=== PATIENT | female | born 1955 | race Caucasian/White ===

== ENCOUNTER 2020-07-27 01:09 | Emergency (ER) | payer MEDICAID, OTHER ==
[~2020-07-27] VITALS: Ht 165.1 cm; Wt 63.5 kg
[2020-07-27 02:55] LABS: Basophils # (auto) 0.1 10 ^3/uL (0-0.2); Lymphocytes # (auto) 2.1 10 ^3/uL (0.4-5.4)
[2020-07-27 02:56] LABS: Basophils % (auto) 0.5 % (0.0-2.0); Eosinophils # (auto) 1.8 10 ^3/uL (0-0.8); Eosinophils % (auto) 13.1 % (0.0-7.0); Hemoglobin 15.6 g/dL (12.2-16.2); Lymphocytes % (auto) 15.3 % (10.0-50.0); Mean Corpuscular Hemoglobin 31.3 pg (28.0-32.0); Mean Corpuscular Hgb Conc. 33.8 g/dL (32.0-36.0); Mean Corpuscular Volume 92.6 fL (80.0-100.0); Monocytes # (auto) 0.8 10 ^3/uL (0-1.3); Monocytes % (auto) 5.5 % (0.0-12.0); Neutrophils # (auto) 9.1 10 ^3/uL (1.6-8.6); Neutrophils % (auto) 65.6 % (37.0-80.0); Platelet Count (auto) 454 10^3/uL (140-450); Red Blood Cells 4.97 10^6/uL (4.0-5.20); Red Cell Distribution Width 13.1 % (11.8-14.3); White Blood Cell 13.8 10^3/uL (4.4-10.8)
[2020-07-27 03:12] LABS: Calcium 8.7 mg/dL (8.5-10.1); Chloride 108 mmol/L (98-107); Potassium 3.9 mmol/L (3.5-5.1); Sodium 138 mmol/L (136-145)
[2020-07-27 03:16] LABS: Alanine Aminotransferase 18 U/L (13-56); Albumin 3.5 g/dL (3.4-5.0); Anion Gap 8 (5-15); Aspartate Aminotransferase 11 U/L (15-37); BUN/Creatinine Ratio 14.3; Blood Urea Nitrogen 10 mg/dL (7-18); Carbon Dioxide 22 mmol/L (21-32); GFR African American 109 mL/min; GFR Non-African American 90 mL/min; Glucose 119 mg/dL (74-106)
[2020-07-27 03:17] LABS: INR 0.97 (0.9-1.15)
[2020-07-27 03:20] LABS: Alkaline Phosphatase 138 U/L (45-117); Bilirubin, Total 0.2 mg/dL (0.2-1.0); Total Protein 7.5 g/dL (6.4-8.2)
[2020-07-27] MEDS ORDERED: IPRATROPIUM BROM 0.5 MG/2.5ML INH SOL NEB ONE (03:30)
[2020-07-27] MEDS ORDERED: methylPREDNISolone SOD SUCC 125 MG/2 ML VL IV ONE (03:30)
[2020-07-27] MEDS ORDERED: ALBUTEROL SULF 2.5 MG/0.5ML(0.5%) NEB SOLN NEB ONE (03:30)
[2020-07-27 06:00] VITALS: BP 122/86
== END 2020-07-27 07:05 | disposition home or self-care (01) ==
LOC: EDBD 01:09 → ER 01:17
DX: J44.1 Chronic obstructive pulmonary disease with (acute) exacerbation (principal); F17.210 Nicotine dependence, cigarettes, uncomplicated
CPT/HCPCS: 36415; 80053; 83605; 84484; 85025; 85610; 85730; 93005; 94640; 96374; 99284; J2930; J7644

== ENCOUNTER 2024-01-26 03:05 | Inpatient (IN) | payer BC, MEDICAID ==
[~2024-01-26] VITALS: Ht 160 cm; Wt 52.0 kg
[2024-01-26] MEDS: IPRATROPIUM BROM 0.5 MG/2.5ML INH SOL NEB ONE (03:37)
[2024-01-26] MEDS: ALBUTEROL SULF 2.5 MG/0.5ML(0.5%) NEB SOLN NEB ONE (03:37)
--- NOTE | 2024-01-26 03:48 | ED.PDOC ---
SOB-HPI HPI Comments A 68 year old female brought in by EMS presents to the ED with a chief complaint of shortness of breath onset 4 days. Per EMS, patient was seen in urgent care last night around 20:30 was given steroid and inhaler. Pt got home and noticed her shortness of breath and cough worsen and called EMS. Upon EMS arrival, patient's O2 sat was 80%, patient was given breathing treatment and O2 sat was 99%. She has a past medical history of asthma, COPD. No other symptoms or modifying factors present at this time. Chief Complaint: Shortness of Breath Time Seen by MD: 03:20 Reviewed notes: Medications, Allergies Information Source: Patient, Emergency Med Personnel Mode of Arrival: EMS Severity: Moderate Timing: Days Duration: Since onset PE Risk Factors: None History of: Asthma, COPD Prehospital treatment: Treatment Associated Signs and Symptoms: Cough Radiation: No Radiation Past Medical History PAST MEDICAL HISTORY: Asthma, COPD Surgical History: Denies all surgeries TOP EXECUTIVE History: Denies all TOP EXECUTIVE Hx Family History Family History: Unknown Social History Smoker: Cigarettes Alcohol: Denies ETOH Use Drugs: Denies Drug Use Lives In: Home Constitutional: denies: chills, diaphoresis, fatigue, fever, malaise, sweats, w eakness, others EENTM: denies: blurred vision, double vision, ear bleeding, ear discharge, ear drainage, ear pain, ear ringing, eye pain, eye redness, hearing loss, mouth pain, mouth swelling, nasal discharge, nose bleeding, nose congestion, nose pain, photophobia, tearing, throat pain, throat swelling, voice changes, others Respiratory: reports: cough, shortness of breath; denies: hemoptysis, orthopnea, SOB at rest, SOB with excertion, stridor, wheezing, others Cardiovascular: denies: chest pain, dizzy spells, diaphoresis, Dyspnea on exertion, edema, irregular heart beat, left arm pain, lightheadedness, palpitations, PND, syncope, others Gastrointestinal: denies: abdomen distended, abdominal pain, blood streaked bowels, constipated, diarrhea, dysphagia, difficulty swallowing, hematemesis, melena, nausea, poor appetite, poor fluid intake, rectal bleeding, rectal pain, vomiting, others Genitourinary: denies: abnormal vagina bleeding, burning, dyspareunia, dysuria, flank pain, frequency, hematuria, incontinence, pain, , vagina discharge, urgency, others Neurological: denies: dizziness, fainting, headache, left sided numbness, left sided weakness, numbness, paresthesia, pre-existing deficit, right sided numbne ss, right sided weakness, seizure, speech problems, tingling, tremors, weakness, others Musculoskeletal: denies: back pain, gout, joint pain, joint swelling, muscle pain, muscle stiffness, neck pain, others Integumetry: denies: bruises, change in color, change in hair/nails, dryness, laceration, lesions, lumps, rash, wounds, others Allergic/Immunocompromised: denies: Difficulty Healing, Frequent Infections, Hives, Itching, others Hematologic/Lymphatic: denies: anemia, blood clots, easy bleeding, easy bruising, swollen glands, others Endocrine: denies: excessive hunger, excessive sweating, excessive thirst, excessive urination, flushing, intolerance to cold, intolerance to heat, unexplained weight gain, unexplained weight loss, others Psychiatric: denies: anxiety, bipolar disorder, depression, hopeless, panic disorder, schizophrenia, sleepless, suicidal, others All Other Systems: Reviewed and Negative Physical Exam General Appearance: No Apparent Distress, Normal HEENT: Normal ENT Inspection, Pharynx Normal, TMs Normal Neck: Full Range of Motion, Non-Tender, Normal, Normal Inspection Respiratory: Chest Non-Tender, Lungs Clear, No Accessory Muscle Use, No Respiratory Distress, Normal Breath Sounds Cardiovascular: No Edema, No JVD, No Murmur, No Gallop, Normal Peripheral Pulses, Regular Rate/Rhythm Breast Exam: Deferred Gastrointestinal: No Organomegaly, Non Tender, No Pulsatile Mass, Normal Bowel Sounds, Soft Genitalia: Deferred Pelvic: Deferred Rectal: Deferred Extremities: No calf tenderness, Normal capillary refill, Normal inspection, Normal range of motion, Non-tender, No pedal edema Musculoskeletal : Apperance: Normal Neurologic: Alert, professional bondsman II-XII nml as Tested, No Motor Deficits, Normal Affect, Normal Mood, No Sensory Deficits Cerebellar Function: Normal Reflexes: Normal Skin: Dry, Normal Color, Warm Lymphatic: No Adenopathy Was a procedure done? Was a procedure done?: No Differential Dx Differential Diagnosis: Asthma, Bronchitis, CHF, COPD, Dysrhythmia, Pneumonia, Pulmonary Embolism, Other X-Ray, Labs, Meds, VS Vital Signs Date Time Temp Pulse Resp B/P (MAP) Pulse Ox O2 Delivery O2 Flow Rate FiO2 01/26/24 04:15 98.8 115 26 134/87 (103) 92 98.8 01/26/24 04:15 115 26 92 Room Air* 0 21 01/26/24 03:39 18 98 Room Air* 0 01/26/24 03:11 99.7 121 24 126/4 (44) 99 Lab Test 01/26/24 05:03 01/26/24 03:51 01/26/24 03:40 Range/Units Troponin I High Sensitivity Pending 548 *H </=34 ng/L Blood Gas Specimen Type Venous Blood Gas Sample Site Vbg - n/a Blood Gas Patient Temperature 37.0 Arterial Blood Date Drawn [id number] Martín Test N/a Venous Blood pH 7.410 7.320-7.430 Venous Blood pCO2 at Patient Temp 30.8 L 38.0-54.0 mmHg Venous Blood pO2 at Patient Temp 46.8 23.0-48.0 mmHg Venous Blood HCO3 19.1 L 22.0-29.0 mmol/L Venous Bld O2 Saturation (Measured) 80.5 60.0-85.0 % Venous Blood Base Excess -4.5 L -2.0-3.0 mmol/L Venous Blood Total Hemoglobin 12.2 12.0-16.0 g/dL Venous Blood Oxyhemoglobin 79.0 0.0-79.0 % Venous Blood Carboxyhemoglobin 1.3 0.5-1.5 % Venous Blood Methemoglobin 0.6 0.0-1.5 % Blood Gas Modality Vbg - n/a FiO2 % 36.0 Specimen Drawn By Er staff White Blood Count 12.9 H 4.4-10.8 10^3/uL Red Blood Count 3.58 L 4.0-5.20 10^6/uL Hemoglobin 11.2 L 12.2-16.2 g/dL Hematocrit 34.1 L 36.0-46.0 % Mean Corpuscular Volume 95.4 80.0-100.0 fL Mean Corpuscular Hemoglobin 31.4 28.0-32.0 pg Mean Corpuscular Hemoglobin Concent 32.9 32.0-36.0 g/dL Red Cell Distribution Width 14.5 H 11.8-14.3 % Platelet Count 267 140-450 10^3/uL Mean Platelet Volume 8.4 6.9-10.8 fL Neutrophils (%) (Auto) 77.3 37.0-80.0 % Lymphocytes (%) (Auto) 15.4 10.0-50.0 % Monocytes (%) (Auto) 4.7 0.0-12.0 % Eosinophils (%) (Auto) 1.7 0.0-7.0 % Basophils (%) (Auto) 0.9 0.0-2.0 % Neutrophils # (Auto) 9.9 H 1.6-8.6 10 ^3/uL Lymphocytes # (Auto) 2.0 0.4-5.4 10 ^3/uL Monocytes # (Auto) 0.6 0-1.3 10 ^3/uL Eosinophils # (Auto) 0.2 0-0.8 10 ^3/uL Basophils # (Auto) 0.1 0-0.2 10 ^3/uL Nucleated Red Blood Cells 0.0 % Sodium Level 141 136-145 mmol/L Potassium Level 3.0 L 3.5-5.1 mmol/L Chloride Level 110 H 98-107 mmol/L Carbon Dioxide Level 20 20-31 mmol/L Anion Gap 11 5-15 Blood Urea Nitrogen 15 9-23 mg/dL Creatinine 0.85 0.550-1.02 mg/dL Glomerular Filtration Rate Calc 76 >90 mL/min BUN/Creatinine Ratio 17.6 10.0-20.0 Serum Glucose 115 H 74-106 mg/dL Calcium Level 9.1 8.7-10.4 mg/dL Total Bilirubin 0.4 0.2-1.0 mg/dL Aspartate Amino Transferase (AST) 30 13-40 U/L Alanine Aminotransferase (ALT) 30 7-40 U/L Alkaline Phosphatase 127 H 46-116 U/L B-Type Natriuretic Peptide 1275.78 0-100 pg/mL Total Protein 6.0 5.7-8.2 g/dL Albumin 3.7 3.2-4.8 g/dL Current Medications Medications (Trade) Dose Ordered Sig/Desirae Route Start Time Stop Time Status Last Admin Albuterol (Ventolin Medneb) 5 mg ONCE ONCE NEB 01/26/24 03:30 01/26/24 03:31 DC 01/26/24 03:37 Ipratropium [place] (Atrovent Medneb) 0.5 mg ONCE ONCE NEB 01/26/24 03:30 01/26/24 03:31 DC 01/26/24 03:37 Prednisone 40 mg ONCE ONCE PO 01/26/24 03:30 01/26/24 03:31 DC 01/26/24 04:23 Time of 1ST Reevaluation: 03:50 Reevaluation 1ST: Unchanged Time of 2ND Reevaluation: 05:31 Reevaluation 2ND: Unchanged Patient Education/Counseling: Diagnosis, Treatment, Prognosis Family Education/Counseling: No Family Present Departure 1 Departure Time of Disposition: 05:31 (I personally reviewed and interpreted the lab and imaging studies. I reviewed the results with the patient and using shared decision making we decided on inpatient management /admission. ) Impression: Primary Impression: COPD with acute exacerbation Additional Impression: Intermediate coronary syndrome Disposition: ADMITTED INPATIENT Condition: Guarded Critical Care Note Critical Care Time?: Yes (35 min-critical care time only) Critical care comment: Total critical care time: Approximately 36 minutes Due to a high probability of clinically significant, life threatening deterioration, the patient required my highest level of preparedness to intervene emergently and I personally spent this critical care time directly and personally managing the patient. This critical care time included obtaining a history; examining the patient; pulse oximetry; ordering and review of studies; arranging urgent treatment with development of a management plan; evaluation of patient's response to treatment; frequent reassessment; and, discussions with other providers. This critical care time was performed to assess and manage the high probability of imminent, life-threatening deterioration that could result in multi-organ failure. It was exclusive of separately billable procedures and treating other patients. Stability Stability form required: No Heart Score Heart Score: Heart Score Response (Comments) Value History Moderate Suspicious 1 EKG Repolarization Disturb 1 Age >65 2 Risk Factors 1 or 2 risk factors 1 Troponin >3 x's Normal limit 2 Total 7 I personally scribed for ESTEFANY DUFFY MD ([email or web address]) on 01/26/24 at 03:48. Electronically submitted by Hilaria Garner ([email or web address]). ESTEFANY DUFFY MD Jan 26, 2024 03:48
[2024-01-26 04:15] VITALS: PULSE 115; RESP 26; O2SAT 92
[2024-01-26] MEDS: predniSONE 20 MG TAB PO ONE (04:23)
[2024-01-26 04:31] LABS: Basophils # (auto) 0.1 10 ^3/uL (0-0.2); Basophils % (auto) 0.9 % (0.0-2.0); Eosinophils # (auto) 0.2 10 ^3/uL (0-0.8); Eosinophils % (auto) 1.7 % (0.0-7.0); Hematocrit 34.1 % (36.0-46.0); Hemoglobin 11.2 g/dL (12.2-16.2); Lymphocytes % (auto) 15.4 % (10.0-50.0); Mean Corpuscular Hemoglobin 31.4 pg (28.0-32.0); Mean Corpuscular Hgb Conc. 32.9 g/dL (32.0-36.0); Mean Corpuscular Volume 95.4 fL (80.0-100.0); Monocytes # (auto) 0.6 10 ^3/uL (0-1.3); Monocytes % (auto) 4.7 % (0.0-12.0); Neutrophils # (auto) 9.9 10 ^3/uL (1.6-8.6); Neutrophils % (auto) 77.3 % (37.0-80.0); Platelet Count (auto) 267 10^3/uL (140-450); Red Blood Cells 3.58 10^6/uL (4.0-5.20); Red Cell Distribution Width 14.5 % (11.8-14.3); White Blood Cell 12.9 10^3/uL (4.4-10.8)
[2024-01-26 04:47] LABS: Alanine Aminotransferase 30 U/L (7-40); Albumin 3.7 g/dL (3.2-4.8); Anion Gap 11 (5-15); Aspartate Aminotransferase 30 U/L (13-40); BUN/Creatinine Ratio 17.6 (10.0-20.0); Blood Urea Nitrogen 15 mg/dL (9-23); Calcium 9.1 mg/dL (8.7-10.4); Sodium 141 mmol/L (136-145)
[2024-01-26 04:48] LABS: Bilirubin, Total 0.4 mg/dL (0.2-1.0)
[2024-01-26 04:51] LABS: Alkaline Phosphatase 127 U/L (46-116); Carbon Dioxide 20 mmol/L (20-31); Chloride 110 mmol/L (98-107); Glucose 115 mg/dL (74-106)
--- NOTE | 2024-01-26 05:05 | DVH ---
CHEST RADIOGRAPH Indication: SOB Technique: Single frontal view of the chest was obtained COMPARISON: None FINDINGS: Lines and Tubes: None Lungs: Diffuse increased interstitial prominence. Right lower lobe airspace disease. Pleura: No effusion. No pneumothorax. Cardiomediastinal contours: Unremarkable Bones: Unremarkable IMPRESSION: Right lower lobe airspace disease. Diffuse increased interstitial prominence may represent congestion or viral pneumonitis.
[2024-01-26] MEDS: ASPirin 81 mg TAB PO ONE ×2 (05:46→07:45)
[2024-01-26] MEDS: cefTRIAXone 1GM/50ML D5W 50 ML IV ONE (05:46)
[2024-01-26] MEDS: AZITHROMYCIN 500MG/ 250ML 250 ML IV ONE (06:18)
--- NOTE | 2024-01-26 06:36 | ECG ---
[facility] Test Date: 2024-01-26 Test Time: 03:32:15 Pat Name: AMARJIT ALLEN Department: ER Room: 0245T Gender: F Blueprint Reproducer: MARCELA : 1955 Requested By: ESTEFANY DUFFY Order Number: [id number] Reading MD: Riccardo Isaacs Measurements Intervals [place] Rate: 114 P: 36 CO: 94 QRS: 80 QRSD: 161 T: -75 QT: 386 QTc: 532 Interpretive Statements Sinus tachycardia Atrial premature complex Probable left ventricular hypertrophy Prolonged QT interval Electronically Signed On 01-27-2024 10:29:49 PST by Riccardo Isaacs Please click the below link to view image of tracing.
[2024-01-26] MEDS ORDERED: NITROGLYCERIN 0.4 MG SL TAB SL PRN (07:30)
[2024-01-26] MEDS ORDERED: ONDANSETRON HCL 4 MG/2 ML VIAL IV PRN (07:30)
[2024-01-26] MEDS ORDERED: ACETAMINOPHEN 325 MG TAB PO PRN (07:30)
[2024-01-26] MEDS ORDERED: MORPHINE SULFATE INJ 2 MG/ml SYRG IV PRN (07:30)
--- NOTE | 2024-01-26 07:44 | DVHHP2 ---
History of Present Illness Reason for Visit: Shortness of breath History of Present Illness Ayse Salinas is a 68-year-old female with past medical history of COPD, who comes in with complaints of shortness of breath. Patient states her shortness of breath began on Tuesday. It was worsening so she went to urgent care on Tuesday a nd received breathing treatments that helped her. She tried to work on Tuesday and was not able to. She went back too urgent care on Tuesday, but when her symptoms continued to worsen she called EMS Tuesday night. Patient states the shortness of breath was becoming so severe that she was short of breath at rest. When EMS arrived patient was hypoxic with RA sat of 80%, after receiving a breathing treatment her oxygen saturation improved. Patient continues to complain of shortness of breath at rest and dry cough. Pulmonary: COPD Past Surgical History: None Family History: None Smoke: <1 pack per day ALCOHOL: none Drugs: None Lives: with Family Domestic Violence: Neg Review of Systems Constitutional: No: Fever, Chills, Sweats, Weakness, Malaise, Other Eyes: No: Pain, Vision change, Conjunctivae inflammation, Eyelid inflammation, Other, Redness ENT: No: Ear pain, Ear discharge, Nose pain, Nose discharge, Nose congestion, Mouth pain, Mouth swelling, Throat pain, Throat swelling, Other Respiratory: Cough, Dry, Shortness of breath, SOB with excertion, Wheezing; No: Hemoptysis, Pleuritic Pain, Sputum, Wheezing, Other Cardiovascular: No: Chest Pain, Palpitations, Orthopnea, Paroxysmal Noc. Dyspnea, Edema, Lt Headedness, Other Gastrointestinal: No: Nausea, Vomiting, Abdominal Pain, Diarrhea, Constipation, Melena, Hematochezia, Other Genitourinary: No Dysuria, No Frequency, No Incontinence, No Hematuria, No Retention, No Other Musculoskeletal: No: other, neck pain, shoulder pain, arm pain, back pain, hand pain, leg pain, foot pain Skin: No: Rash, Lesions, Jaundice, Bruising, Other Neurological: No: Weakness, Numbness, Incoordination, Change in speech, Confusion, Seizures, Other Allergies: Coded Allergies: Penicillins (Verified Allergy, Unknown, 07/27/20) Medications Current Medications Medications Dose Ordered Sig/Desirae Route Start Time Stop Time Status Last Admin Dose Admin Sodium Chloride 10 ml Q8HR IV 01/26/24 14:00 UNV Acetaminophen/ Hydrocodone Bitart 1 tab Q4HP PRN PO 01/26/24 07:30 UNV Ondansetron HCl 4 mg Q4HP PRN IV 01/26/24 07:30 UNV Docusate Sodium 100 mg BIDPRN PRN PO 01/26/24 07:30 UNV Acetaminophen 650 mg Q6HP PRN PO 01/26/24 07:30 UNV Exam Vital Signs Vital Signs Date Time Temp Pulse Resp B/P (MAP) Pulse Ox O2 Delivery O2 Flow Rate FiO2 01/26/24 06:00 112 25 126/84 (98) 95 01/26/24 04:15 98.8 98.8 01/26/24 04:15 Room Air* 0 21 General Appearance: Alert, Oriented X3, Cooperative, moderate distress HEENT: Atraumatic, PERRLA Respiratory: Other (dimished breath sounds, wheezing) Cardiovascular: Normal S1, Normal S2, Other (Tachycardia) Abdominal: Normal bowel sounds, Soft, No tenderness Extremities: No clubbing, No cyanosis, No edema, Normal pulses Skin: No rashes, No breakdown, No significant lesion Neuro: Normal gait, Normal speech, Strength at 5/5 X4 ext Psych/Mental Status: Mental status NL, Mood NL Labs/Xrays Labs Test 01/26/24 05:54 01/26/24 05:03 01/26/24 03:51 01/26/24 03:40 Range/Units Lactic Acid Level 1.6 0.4-2.0 mmol/L Troponin I High Sensitivity 611 *H </=34 ng/L Blood Gas Specimen Type Venous Blood Gas Sample Site Vbg - n/a Blood Gas Patient Temperature 37.0 Arterial Blood Date Drawn [id number] Martín Test N/a Venous Blood pH 7.410 7.320-7.430 Venous Blood pCO2 at Patient Temp 30.8 L 38.0-54.0 mmHg Venous Blood pO2 at Patient Temp 46.8 23.0-48.0 mmHg Venous Blood HCO3 19.1 L 22.0-29.0 mmol/L Venous Bld O2 Saturation (Measured) 80.5 60.0-85.0 % Venous Blood Base Excess -4.5 L -2.0-3.0 mmol/L Venous Blood Total Hemoglobin 12.2 12.0-16.0 g/dL Venous Blood Oxyhemoglobin 79.0 0.0-79.0 % Venous Blood Carboxyhemoglobin 1.3 0.5-1.5 % Venous Blood Methemoglobin 0.6 0.0-1.5 % Blood Gas Modality Vbg - n/a FiO2 % 36.0 Specimen Drawn By Er staff White Blood Count 12.9 H 4.4-10.8 10^3/uL Red Blood Count 3.58 L 4.0-5.20 10^6/uL Hemoglobin 11.2 L 12.2-16.2 g/dL Hematocrit 34.1 L 36.0-46.0 % Mean Corpuscular Volume 95.4 80.0-100.0 fL Mean Corpuscular Hemoglobin 31.4 28.0-32.0 pg Mean Corpuscular Hemoglobin Concent 32.9 32.0-36.0 g/dL Red Cell Distribution Width 14.5 H 11.8-14.3 % Platelet Count 267 140-450 10^3/uL Mean Platelet Volume 8.4 6.9-10.8 fL Neutrophils (%) (Auto) 77.3 37.0-80.0 % Lymphocytes (%) (Auto) 15.4 10.0-50.0 % Monocytes (%) (Auto) 4.7 0.0-12.0 % Eosinophils (%) (Auto) 1.7 0.0-7.0 % Basophils (%) (Auto) 0.9 0.0-2.0 % Neutrophils # (Auto) 9.9 H 1.6-8.6 10 ^3/uL Lymphocytes # (Auto) 2.0 0.4-5.4 10 ^3/uL Monocytes # (Auto) 0.6 0-1.3 10 ^3/uL Eosinophils # (Auto) 0.2 0-0.8 10 ^3/uL Basophils # (Auto) 0.1 0-0.2 10 ^3/uL Nucleated Red Blood Cells 0.0 % Sodium Level 141 136-145 mmol/L Potassium Level 3.0 L 3.5-5.1 mmol/L Chloride Level 110 H 98-107 mmol/L Carbon Dioxide Level 20 20-31 mmol/L Anion Gap 11 5-15 Blood Urea Nitrogen 15 9-23 mg/dL Creatinine 0.85 0.550-1.02 mg/dL Glomerular Filtration Rate Calc 76 >90 mL/min BUN/Creatinine Ratio 17.6 10.0-20.0 Serum Glucose 115 H 74-106 mg/dL Calcium Level 9.1 8.7-10.4 mg/dL Total Bilirubin 0.4 0.2-1.0 mg/dL Aspartate Amino Transferase (AST) 30 13-40 U/L Alanine Aminotransferase (ALT) 30 7-40 U/L Alkaline Phosphatase 127 H 46-116 U/L B-Type Natriuretic Peptide 1275.78 0-100 pg/mL Total Protein 6.0 5.7-8.2 g/dL Albumin 3.7 3.2-4.8 g/dL CHEST RADIOGRAPH FINDINGS: Lines and Tubes: None Lungs: Diffuse increased interstitial prominence. Right lower lobe airspace disease. Pleura: No effusion. No pneumothorax. Cardiomediastinal contours: Unremarkable Bones: Unremarkable IMPRESSION: Right lower lobe airspace disease. Diffuse increased interstitial prominence may represent congestion or viral pneumonitis. Assessment/Plan Assessment/Plan Assessment: COPD with acute exacerbation, SIRS, Hypoxia, Possible pneumonia, Possible Pneumonitis, Elevated troponin, R/O ACS, Hypokalemia, Tobacco dependence, Plan: Admit to Tele, Cardiology consult, IV antibiotics, IV steroids, Breathing treatments as needed, Supplemental oxygen as needed, Manage/Monitor electrolytes closely, Plan discussed with: Patient My Orders Orders - KENNY RODRIGUEZ BASTING MARKER Procedure Category Date Status Time Admit ADMIT 01/26/24 Transmitted 07:29 Code Status CODE 01/26/24 Transmitted 07:29 2 Gm Sodium Diet DIET 01/26/24 Transmitted Breakfast Sodium Chloride Lock PHA 01/26/24 Transmitted (Saline Lock Ns) 14:00 Hydrocodone-Acet PHA 01/26/24 Transmitted 5/325mg Tab ([place] 07:30 Ondansetron Hcl PHA 01/26/24 Transmitted (Zofran) 07:30 Docusate Sodium PHA 01/26/24 Transmitted Capsule (Colace 07:30 Complete Blood Count LAB 01/27/24 Verified 04:00 Comprehensive LAB 01/27/24 Verified Metabolic Panel 04:00 Condition: Serious RIANA 01/26/24 Transmitted 07:29 Acetaminophen Tablet PHA 01/26/24 Transmitted (Tylenol Tablet) 07:30 Nitroglycerin PHA 01/26/24 Transmitted Sublingual (Ntrostat 07:30 Morphine Sulfate PHA 01/26/24 Transmitted Injection 07:30 Stat Ekg For Chest [facility] 01/26/24 Transmitted Pain 07:29 Notify Md Of Changes [facility] 01/26/24 Transmitted From Base 07:29 Glass Mold Repairer For [facility] 01/26/24 Transmitted 24 Hours 07:29 Emergency Dysrhythmia [facility] 01/26/24 Transmitted Protocol 07:29 Rhythm Strips Once [facility] 01/26/24 Transmitted Every Shift 07:29 Oxygen By Nasal RT 01/26/24 Transmitted Cannula 07:29 * Cardiology Consult CONS 01/26/24 Transmitted 07:29 Azithromycin 500mg/ PHA 01/27/24 Transmitted 250ml (Zithromax 50 10:00 Ceftriaxone Ivpb [facility] 01/27/24 Transmitted Rocephin 09:00 Methylprednisolone [facility] 01/26/24 Transmitted Sod Succ (Solu Medrol 10:00 Albuterol Medneb [facility] 01/26/24 Transmitted (Ventolin Medneb) 07:30 Ipratropium Medneb [facility] 01/26/24 Transmitted (Atrovent Medneb) 07:30 Date of Service: Jan 26, 2024 Billing Provider: KENNY RODRIGUEZ Common Visit Codes: [id number] INP/OBS CARE (MOD) KENNY RODRIGUEZ Jan 26, 2024 07:44
[2024-01-26] MEDS: POTASSIUM EFFERVESENT TAB 25 MEQ PO ONE (08:18)
[2024-01-26 08:30] VITALS: PULSE 105; RESP 24; O2SAT 97
[2024-01-26 08:50] LABS: Magnesium 2.2 mg/dL (1.6-2.6)
[2024-01-26 08:52] VITALS: BP 115/74; PULSE 106; RESP 22; TEMP 98.8; O2SAT 98
[2024-01-26 09:25] LABS: INR 1.13 (0.9-1.15); Prothrombin Time 11.9 sec (9.3-11.8)
[2024-01-26] MEDS: methylPREDNISolone SOD SUCC 40 MG/ML VL IV SCH (10:39)
[2024-01-26 11:19] LABS: COVID19 ANTIGEN SOFIA FIA NEGATIVE (NEGATIVE); Rapid Influenza A Negative (Negative); Rapid Influenza B Negative (Negative)
--- NOTE | 2024-01-26 11:31 | DVHCONRES ---
Date Seen: Jan 26, 2024 Resident Creating Document: DEMETRIO PULIDO RESIDENT Reason for Consultation Elevated troponins History of Present Illness Ayse Salinas is a 68-year-old female with PMH of COPD, presented to the ED with the chief complaints of shortness of breath. Patient states her shortness of breath began on Tuesday, worsening so she went to urgent care on Tuesday and received breathing treatments that helped her. She tried to work on Tuesday and was not able to. She went back to urgent care again on Tuesday, but when her symptoms continued to worsen she called EMS Tuesday night. See reports dyspnea on exertion, and orthopnea. She also mentions that she has noticed in her bilateral lower extremities. Patient states the shortness of breath was becoming so severe that she was short of breath at rest. On my assessment patient reported no history of heart diseases, palpitations, chest pain, fever, dizziness, diaphoresis and other acute associated symptoms. Past Medical History COPD Past Surgical History Denies Family History Reviewed, noncontributory Social History Lives with son. Smokes less than 1 pack per day since 15 years old, denies alcohol and other drug abuse. Allergies: Coded Allergies: Penicillins (Verified Allergy, Unknown, 07/27/20) Current Medications Current Medications Medications (Trade) Dose Ordered Sig/Desirae Route PRN Reason Start Time Stop Time Status Last Admin Sodium Chloride (Saline Lock Ns) 10 ml Q8HR IV 01/26/24 14:00 Acetaminophen/ Hydrocodone Bitart ([place] 5/325MG Tab) 1 tab Q4HP PRN PO MODERATE PAIN (4-6 PAIN SCALE) 01/26/24 07:30 Ondansetron HCl (Zofran) 4 mg Q4HP PRN IV NAUSEA / VOMITING 01/26/24 07:30 Docusate Sodium (Colace Capsule) 100 mg BIDPRN PRN PO FOR CONSTIPATION 01/26/24 07:30 Acetaminophen (Tylenol Tablet) 650 mg Q6HP PRN PO PAIN SCALE 1-3 OR TEMP>100.4 01/26/24 07:30 Nitroglycerin (Ntrostat Sublingual) 0.4 mg Q5MINP PRN SL FOR CHEST PAIN 01/26/24 07:30 Morphine Sulfate 2 mg Q30M PRN IV FOR CHEST PAIN 01/26/24 07:30 Azithromycin 250 ml @ 125 mls/hr DAILY IV 01/27/24 10:00 Ceftriaxone Sodium 50 ml @ 100 mls/hr DAILY@09 IV 01/27/24 09:00 Methylprednisolone Sodium Succinate (Solu Medrol) 40 mg BID IV 01/26/24 10:00 01/26/24 10:39 Albuterol (Ventolin Medneb) 2.5 mg Q4HPRN PRN NEB SHORTNESS OF BREATH 01/26/24 07:30 Ipratropium [place] (Atrovent Medneb) 0.5 mg Q4HPRN PRN NEB SHORTNESS OF BREATH 01/26/24 07:30 Aspirin 81 mg DAILY PO 01/27/24 10:00 Review of Systems Seen and examined at the bedside. Patient is currently on oxygen, still complaining of shortness of Breath. Vital Signs Vital Signs Date Time Temp Pulse Resp B/P (MAP) Pulse Ox O2 Delivery O2 Flow Rate FiO2 01/26/24 10:58 98.1 101 22 100/77 (85) 97 98.1 01/26/24 08:52 2.0 01/26/24 08:30 Nasal Cannula* 28 Physical Exam General Appearance: Alert, Oriented X3, Cooperative, moderate distress HEENT: Atraumatic, Mucous membranes dry Respiratory: Clear to auscultation, Normal air movement, mild crackles Cardiovascular: Regular rate, Normal S1, Normal S2, No murmurs Abdominal: Active bowel sounds, Soft, no distention, no tenderness Extremities: Trace to 1+ edema in RLE, Normal pulses, No tenderness Skin: No Significant rash Neuro: Normal speech, sensorimotor deficits none Psych/Mental Status: Mental status NL, Mood NL Nurse was there as david during examination Labs/Diagnostic Data Labs Test 01/26/24 10:00 01/26/24 08:49 01/26/24 05:54 01/26/24 05:03 Range/Units Influenza Type A Antigen Negative Negative Influenza Type B Antigen Negative Negative SARS-CoV-2 Antigen (Rapid) Negative NEGATIVE Prothrombin Time 11.9 H 9.3-11.8 sec Prothrombin Time INR 1.13 0.9-1.15 Activated Partial Thromboplast Time 25.0 24.5-34.5 SEC Lactic Acid Level 1.6 0.4-2.0 mmol/L Troponin I High Sensitivity 611 *H </=34 ng/L Test 01/26/24 03:51 01/26/24 03:40 Range/Units Blood Gas Specimen Type Venous Blood Gas Sample Site Vbg - n/a Blood Gas Patient Temperature 37.0 Arterial Blood Date Drawn [id number] Martín Test N/a Venous Blood pH 7.410 7.320-7.430 Venous Blood pCO2 at Patient Temp 30.8 L 38.0-54.0 mmHg Venous Blood pO2 at Patient Temp 46.8 23.0-48.0 mmHg Venous Blood HCO3 19.1 L 22.0-29.0 mmol/L Venous Bld O2 Saturation (Measured) 80.5 60.0-85.0 % Venous Blood Base Excess -4.5 L -2.0-3.0 mmol/L Venous Blood Total Hemoglobin 12.2 12.0-16.0 g/dL Venous Blood Oxyhemoglobin 79.0 0.0-79.0 % Venous Blood Carboxyhemoglobin 1.3 0.5-1.5 % Venous Blood Methemoglobin 0.6 0.0-1.5 % Blood Gas Modality Vbg - n/a FiO2 % 36.0 Specimen Drawn By Er staff White Blood Count 12.9 H 4.4-10.8 10^3/uL Red Blood Count 3.58 L 4.0-5.20 10^6/uL Hemoglobin 11.2 L 12.2-16.2 g/dL Hematocrit 34.1 L 36.0-46.0 % Mean Corpuscular Volume 95.4 80.0-100.0 fL Mean Corpuscular Hemoglobin 31.4 28.0-32.0 pg Mean Corpuscular Hemoglobin Concent 32.9 32.0-36.0 g/dL Red Cell Distribution Width 14.5 H 11.8-14.3 % Platelet Count 267 140-450 10^3/uL Mean Platelet Volume 8.4 6.9-10.8 fL Neutrophils (%) (Auto) 77.3 37.0-80.0 % Lymphocytes (%) (Auto) 15.4 10.0-50.0 % Monocytes (%) (Auto) 4.7 0.0-12.0 % Eosinophils (%) (Auto) 1.7 0.0-7.0 % Basophils (%) (Auto) 0.9 0.0-2.0 % Neutrophils # (Auto) 9.9 H 1.6-8.6 10 ^3/uL Lymphocytes # (Auto) 2.0 0.4-5.4 10 ^3/uL Monocytes # (Auto) 0.6 0-1.3 10 ^3/uL Eosinophils # (Auto) 0.2 0-0.8 10 ^3/uL Basophils # (Auto) 0.1 0-0.2 10 ^3/uL Nucleated Red Blood Cells 0.0 % Sodium Level 141 136-145 mmol/L Potassium Level 3.0 L 3.5-5.1 mmol/L Chloride Level 110 H 98-107 mmol/L Carbon Dioxide Level 20 20-31 mmol/L Anion Gap 11 5-15 Blood Urea Nitrogen 15 9-23 mg/dL Creatinine 0.85 0.550-1.02 mg/dL Glomerular Filtration Rate Calc 76 >90 mL/min BUN/Creatinine Ratio 17.6 10.0-20.0 Serum Glucose 115 H 74-106 mg/dL Hemoglobin A1c 6.1 H <5.7 % A1C Calcium Level 9.1 8.7-10.4 mg/dL Magnesium Level 2.2 1.6-2.6 mg/dL Total Bilirubin 0.4 0.2-1.0 mg/dL Aspartate Amino Transferase (AST) 30 13-40 U/L Alanine Aminotransferase (ALT) 30 7-40 U/L Alkaline Phosphatase 127 H 46-116 U/L B-Type Natriuretic Peptide 1275.78 0-100 pg/mL Total Protein 6.0 5.7-8.2 g/dL Albumin 3.7 3.2-4.8 g/dL Triglycerides Level 99 < 150 mg/dL Cholesterol Level 142 < 200 mg/dL LDL Cholesterol 90 < 100 mg/dL HDL Cholesterol 38 L 40-59 mg/dL Thyroid Stimulating Hormone (TSH) 3.52 0.55-4.78 uIU/mL Assessment NSTEMI type 2 likely due to COPD exacerbation Rule out structural heart disease Acute hypoxic respiratory failure likely due to COPD exacerbation COPD exacerbation, SIRS vs Sepsis ? Pneumonia, Hypokalemia, Tobacco dependence, Plan/Recommendation We will continue with the following plan/recommendations (Dr. Weller): Echocardiogram to evaluate cardiac function Chest pain protocol Continue with aspirin for now Risk factor modification Discussed with Dr. Wooten Given that the patient High risk for CAD patient may benefit from a inpatient coronary angiogram with left heart catheterization once patient is clinically stabilized. Procedure was discussed with the patient in full detail including risks and benefits. Risks include but are not limited to bleeding, contrast-induced nephropathy, stroke, and even . The patient understands and is agreeable to undergo the procedure. We will schedule the patient once clinically stabilized. Plan discussed with: Patient Visit Coding Cardiology RES Date of Service: Jan 26, 2024 Billing Provider: MARY BETH WOOTEN MD Cardiology Common Codes: [id number] INP/OBS CARE (Mod) DEMETRIO PULIDO RESIDENT Jan 26, 2024 11:31
--- NOTE | 2024-01-26 13:23 | DVHPN2 ---
Reviewed: Care Plan, H&P, Labs, Medications, Previous Orders, Radiology Changes from previous H/P or p: No Changes Eyes: No Pain, No Vision change, No Conjunctivae inflammation, No Eyelid inflammation, No Other, No Redness ENT: No Ear pain, No Ear discharge, No Nose pain, No Nose discharge, No Nose congestion, No Mouth pain, No Mouth swelling, No Throat pain, No Throat swelling, No Other Cardiovascular: No Chest Pain, No Palpitations, No Orthopnea, No Paroxysmal Noc. Dyspnea, No Edema, No Lt Headedness, No Other Respiratory: Cough, Dry, Shortness of breath, SOB with excertion, Wheezing; No Hemoptysis, No Pleuritic Pain, No Sputum, No Other Gastrointestinal: No Nausea, No Vomiting, No Abdominal Pain, No Diarrhea, No Constipation, No Melena, No Hematochezia, No Other Genitourinary: No Dysuria, No Frequency, No Incontinence, No Hematuria, No Retention, No Other Musculoskeletal: No other, No neck pain, No shoulder pain, No arm pain, No back pain, No hand pain, No leg pain, No foot pain Skin: No Rash, No Lesions, No Jaundice, No Bruising, No Other Objective Vitals Vital Signs Date Time Temp Pulse Resp B/P (MAP) Pulse Ox O2 Delivery O2 Flow Rate FiO2 01/26/24 12:48 104 22 110/78 (89) 97 01/26/24 10:58 98.1 98.1 01/26/24 08:52 2.0 01/26/24 08:30 Nasal Cannula* 28 Intake/Output Intake and Output 01/26/24 07:00 Intake Total 50 ml Balance 50 ml Intake IV Total 50 ml Medications Current Medications Medications Dose Ordered Sig/Desirae Route Start Time Stop Time Status Last Admin Dose Admin Sodium Chloride 10 ml Q8HR IV 01/26/24 14:00 Acetaminophen/ Hydrocodone Bitart 1 tab Q4HP PRN PO 01/26/24 07:30 Ondansetron HCl 4 mg Q4HP PRN IV 01/26/24 07:30 Docusate Sodium 100 mg BIDPRN PRN PO 01/26/24 07:30 Acetaminophen 650 mg Q6HP PRN PO 01/26/24 07:30 Nitroglycerin 0.4 mg Q5MINP PRN SL 01/26/24 07:30 Morphine Sulfate 2 mg Q30M PRN IV 01/26/24 07:30 Azithromycin 250 ml @ 125 mls/hr DAILY IV 01/27/24 10:00 Ceftriaxone Sodium 50 ml @ 100 mls/hr DAILY@09 IV 01/27/24 09:00 Methylprednisolone Sodium Succinate 40 mg BID IV 01/26/24 10:00 01/26/24 10:39 40 MG Albuterol 2.5 mg Q4HPRN PRN NEB 01/26/24 07:30 Ipratropium [place] 0.5 mg Q4HPRN PRN NEB 01/26/24 07:30 Aspirin 81 mg DAILY PO 01/27/24 10:00 Laboratory Results Laboratory Tests 01/26/24 03:40 Chemistry Test 01/26/24 03:40 Albumin 3.7 g/dL (3.2-4.8) Calcium Level 9.1 mg/dL (8.7-10.4) Magnesium Level 2.2 mg/dL (1.6-2.6) Total Protein 6.0 g/dL (5.7-8.2) Coagulation Test 01/26/24 08:49 Prothrombin Time 11.9 sec (9.3-11.8) H Prothrombin Time INR 1.13 (0.9-1.15) Activated Partial Thromboplast Time 25.0 SEC (24.5-34.5) Lipid panel Test 01/26/24 03:40 Cholesterol Level 142 mg/dL (< 200) HDL Cholesterol 38 mg/dL (40-59) L Triglycerides Level 99 mg/dL (< 150) Cardiac Markers Test 01/26/24 03:40 B-Type Natriuretic Peptide 1275.78 pg/mL (0-100) LFT Test 01/26/24 03:40 Alanine Aminotransferase (ALT) 30 U/L (7-40) Alkaline Phosphatase 127 U/L (46-116) H Aspartate Amino Transferase (AST) 30 U/L (13-40) Total Bilirubin 0.4 mg/dL (0.2-1.0) HgA1c, TSH Test 01/26/24 03:40 Hemoglobin A1c 6.1 % A1C (<5.7) H Thyroid Stimulating Hormone (TSH) 3.52 uIU/mL (0.55-4.78) Blood Gas Results Test 01/26/24 03:51 FiO2 % 36.0 Labs and/or images reviewed: Labs reviewed by me, Image(s) reviewed by me Assessment/Plan Assessment/Plan NSTEMI type 2 likely due to COPD exacerbation Rule out structural heart disease Acute hypoxic respiratory failure likely due to COPD exacerbation COPD exacerbation, albuterol Atrovent Solu-Medrol SIRS vs Sepsis Possible congestive heart failure BNP 1217 Right Lower lobe community-acquired Pneumonia, Rocephin azithromycin Hypokalemia, Tobacco dependence, counseling Time spent 65 minutes Patient is full code Advanced care planning time 20 minutes Plan discussed with: Patient Date of Service: Jan 26, 2024 Billing Provider: MONTSERRAT OTERO MD Common Visit Codes: [id number] CARE 30-74 MIN MONTSERRAT OTERO MD Jan 26, 2024 13:23
[2024-01-26] MEDS: OPTISON 3ml Vial for INJ IV ONE (13:59)
[2024-01-26] MEDS: SODIUM CHLOR 0.9% PF (SALINE LOCK) 10ML VIAL/SYR IV SCH (13:59)
--- NOTE | 2024-01-26 15:56 | DVHSR ---
APPROVED REPORT EXAM: Two-dimensional and M-mode echocardiogram with Doppler and color Doppler. Blood Pressure: 100/77 mmHg INDICATION SOB RISK FACTORS Height: 5' 3", Weight: 120 DIMENSIONS LVDd4.8 (3.8-5.7cm)LA (2D)3.6 (1.9-4.0cm)Aortic Root3.4 (2.0-3.7cm) LVDs4.6 (2.5-4.0cm)LA (MM) (1.9-4.0cm)Aortic Cusp Exc1.5 (1.5-2.0cm) EF (%) 10.0 (55-70%)Rt. Atrium3.4 (1.9-4.0cm)Asc. Aorta cm IVSd1.0 (0.7-1.1cm)RV (D) (1.8-2.4cm) PWd1.1 (0.7-1.1cm) Mitral Valve MitralMitral Stenosis E wave1.60m/sMV Mean GR.mmHg E/A ratio0.02D MVAcm2 Aortic Valve Aortic ValveAortic Stenosis V10.70m/Aj Mean GR.2mmHg V21.10m/Aj Peak GR.5mmHg LVOT Diameter2.0 (1.8-2.4cm)Doppler AVA2.00cm2 Tricuspid Valve TR Velocity3.30m/s [id number] Conclusion Severely dilated left ventricle. Severely reduced left ventricular systolic function estimated eject ion fraction of 10-15%. There is anterior anteroseptal akinesia, there is inferior and lateral wall hypokinesia Severely reduced right ventricular systolic function. Severe pulmonary hypertension estimated right ventricular systolic pressure at 65 mm of mercury Moderately dilated right and left atria. The aortic valve appears normal in structure and function. Mitral valve appears normal in structure and function. Tricuspid valve appears eran inl structure and function. The pulmonary valve is grossly normal. No pericardial effusion.
[2024-01-26 16:04] LABS: Potassium 4.5 mmol/L (3.5-5.1)
[2024-01-26 16:11] LABS: Magnesium 2.1 mg/dL (1.6-2.6)
--- NOTE | 2024-01-26 18:13 | DVHINCON2 ---
Date of service: Jan 26, 2024 Referring Physician Morgan Callahan MD Reason for Consultation Acute hypoxic respiratory failure, dyspnea, cough, pneumonia. History of Present Illness A 68-year-old woman with past medical history of COPD, who presents to ED today with complaints of shortness of breath. Patient states her shortness of breath began on Tuesday. She went to urgent care on Tuesday and received breathing treatments that helped. She tried to work on Tuesday and was not able to. She went back to urgent care on Tuesday, but when her symptoms continued to worsen she called EMS Tuesday night. Patient states the shortness of breath was becoming so severe that she was short of breath at rest. When EMS arrived patient was hypoxic with RA sat of 80%, after receiving a breathing treatment her oxygen saturation improved. Patient continues to complain of shortness of breath at rest and dry cough. She was admitted for further care and pulmonary consultation is requested for evaluation and management of acute hypoxic respiratory failure, dyspnea, cough and pneumonia. Review of Systems: 14-point review of systems negative unless otherwise noted above. Past Medical History: COPD. Past Surgical History: None. Medications: Reviewed. Allergies: Penicillins Family History: No family history of premature CAD. No family history of lung disorders. Social History: Smoker. <1 pack per day No alcohol or illicit drug use. Allergies: Coded Allergies: Penicillins (Verified Allergy, Unknown, 07/27/20) Current Medications Current Medications Medications (Trade) Dose Ordered Sig/Desirae Route PRN Reason Start Time Stop Time Status Last Admin Sodium Chloride (Saline Lock Ns) 10 ml Q8HR IV 01/26/24 14:00 01/26/24 13:59 Acetaminophen/ Hydrocodone Bitart ([place] 5/325MG Tab) 1 tab Q4HP PRN PO MODERATE PAIN (4-6 PAIN SCALE) 01/26/24 07:30 Ondansetron HCl (Zofran) 4 mg Q4HP PRN IV NAUSEA / VOMITING 01/26/24 07:30 Docusate Sodium (Colace Capsule) 100 mg BIDPRN PRN PO FOR CONSTIPATION 01/26/24 07:30 Acetaminophen (Tylenol Tablet) 650 mg Q6HP PRN PO PAIN SCALE 1-3 OR TEMP>100.4 01/26/24 07:30 Nitroglycerin (Ntrostat Sublingual) 0.4 mg Q5MINP PRN SL FOR CHEST PAIN 01/26/24 07:30 Morphine Sulfate 2 mg Q30M PRN IV FOR CHEST PAIN 01/26/24 07:30 Azithromycin 250 ml @ 125 mls/hr DAILY IV 01/27/24 10:00 Ceftriaxone Sodium 50 ml @ 100 mls/hr DAILY@09 IV 01/27/24 09:00 Methylprednisolone Sodium Succinate (Solu Medrol) 40 mg BID IV 01/26/24 10:00 01/26/24 10:39 Albuterol (Ventolin Medneb) 2.5 mg Q4HPRN PRN NEB SHORTNESS OF BREATH 01/26/24 07:30 Ipratropium [place] (Atrovent Medneb) 0.5 mg Q4HPRN PRN NEB SHORTNESS OF BREATH 01/26/24 07:30 Aspirin 81 mg DAILY PO 01/27/24 10:00 Acetylcysteine (Mucomyst Inhalation 20%) 200 mg Q8HR NEB 01/26/24 22:00 01/29/24 21:59 UNV Vital Signs Vital Signs Date Time Temp Pulse Resp B/P (MAP) Pulse Ox O2 Delivery O2 Flow Rate FiO2 01/26/24 16:57 109 18 122/79 (93) 98 01/26/24 10:58 98.1 98.1 01/26/24 08:52 2.0 01/26/24 08:30 Nasal Cannula* 28 Physical Exam Gen.: Patient lying in bed in no apparent distress. On supplemental oxygen. Head: Normocephalic, atraumatic. Eyes: EOMI/PERRLA. Ears: Normal hearing. Normal anatomy. Neck/trachea: Trachea midline, supple. Nose: Normal external anatomy. Mouth: Moist mucous membranes. Chest: Decreased air entry bilaterally. No wheezing or rhonchi. Cardiovascular: Positive S1, positive S2. Regular rate and rhythm. Abdomen: Positive bowel sounds in all 4 quadrants. Soft, non-tender, non- distended. : Deferred. Rectal: Deferred. Skin: Warm, dry. Intact. Extremities: 2+ radial pulses bilaterally. No lower extremity edema. Neuro: Awake, alert, oriented x3. No gross motor or sensory deficits. Cranial nerves II through XII intact. Gait not assessed. Labs/Diagnostic Data Labs Test 01/26/24 15:17 01/26/24 10:00 01/26/24 08:49 01/26/24 05:54 Range/Units Potassium Level 4.5 3.5-5.1 mmol/L Magnesium Level 2.1 1.6-2.6 mg/dL Influenza Type A Antigen Negative Negative Influenza Type B Antigen Negative Negative SARS-CoV-2 Antigen (Rapid) Negative NEGATIVE Prothrombin Time 11.9 H 9.3-11.8 sec Prothrombin Time INR 1.13 0.9-1.15 Activated Partial Thromboplast Time 25.0 24.5-34.5 SEC Lactic Acid Level 1.6 0.4-2.0 mmol/L Test 01/26/24 05:03 01/26/24 03:51 01/26/24 03:40 Range/Units Troponin I High Sensitivity 611 *H </=34 ng/L Blood Gas Specimen Type Venous Blood Gas Sample Site Vbg - n/a Blood Gas Patient Temperature 37.0 Arterial Blood Date Drawn [id number] Martín Test N/a Venous Blood pH 7.410 7.320-7.430 Venous Blood pCO2 at Patient Temp 30.8 L 38.0-54.0 mmHg Venous Blood pO2 at Patient Temp 46.8 23.0-48.0 mmHg Venous Blood HCO3 19.1 L 22.0-29.0 mmol/L Venous Bld O2 Saturation (Measured) 80.5 60.0-85.0 % Venous Blood Base Excess -4.5 L -2.0-3.0 mmol/L Venous Blood Total Hemoglobin 12.2 12.0-16.0 g/dL Venous Blood Oxyhemoglobin 79.0 0.0-79.0 % Venous Blood Carboxyhemoglobin 1.3 0.5-1.5 % Venous Blood Methemoglobin 0.6 0.0-1.5 % Blood Gas Modality Vbg - n/a FiO2 % 36.0 Specimen Drawn By Er staff White Blood Count 12.9 H 4.4-10.8 10^3/uL Red Blood Count 3.58 L 4.0-5.20 10^6/uL Hemoglobin 11.2 L 12.2-16.2 g/dL Hematocrit 34.1 L 36.0-46.0 % Mean Corpuscular Volume 95.4 80.0-100.0 fL Mean Corpuscular Hemoglobin 31.4 28.0-32.0 pg Mean Corpuscular Hemoglobin Concent 32.9 32.0-36.0 g/dL Red Cell Distribution Width 14.5 H 11.8-14.3 % Platelet Count 267 140-450 10^3/uL Mean Platelet Volume 8.4 6.9-10.8 fL Neutrophils (%) (Auto) 77.3 37.0-80.0 % Lymphocytes (%) (Auto) 15.4 10.0-50.0 % Monocytes (%) (Auto) 4.7 0.0-12.0 % Eosinophils (%) (Auto) 1.7 0.0-7.0 % Basophils (%) (Auto) 0.9 0.0-2.0 % Neutrophils # (Auto) 9.9 H 1.6-8.6 10 ^3/uL Lymphocytes # (Auto) 2.0 0.4-5.4 10 ^3/uL Monocytes # (Auto) 0.6 0-1.3 10 ^3/uL Eosinophils # (Auto) 0.2 0-0.8 10 ^3/uL Basophils # (Auto) 0.1 0-0.2 10 ^3/uL Nucleated Red Blood Cells 0.0 % Sodium Level 141 136-145 mmol/L Chloride Level 110 H 98-107 mmol/L Carbon Dioxide Level 20 20-31 mmol/L Anion Gap 11 5-15 Blood Urea Nitrogen 15 9-23 mg/dL Creatinine 0.85 0.550-1.02 mg/dL Glomerular Filtration Rate Calc 76 >90 mL/min BUN/Creatinine Ratio 17.6 10.0-20.0 Serum Glucose 115 H 74-106 mg/dL Hemoglobin A1c 6.1 H <5.7 % A1C Calcium Level 9.1 8.7-10.4 mg/dL Total Bilirubin 0.4 0.2-1.0 mg/dL Aspartate Amino Transferase (AST) 30 13-40 U/L Alanine Aminotransferase (ALT) 30 7-40 U/L Alkaline Phosphatase 127 H 46-116 U/L B-Type Natriuretic Peptide 1275.78 0-100 pg/mL Total Protein 6.0 5.7-8.2 g/dL Albumin 3.7 3.2-4.8 g/dL Triglycerides Level 99 < 150 mg/dL Cholesterol Level 142 < 200 mg/dL LDL Cholesterol 90 < 100 mg/dL HDL Cholesterol 38 L 40-59 mg/dL Thyroid Stimulating Hormone (TSH) 3.52 0.55-4.78 uIU/mL Assessment Impression: Acute hypoxic respiratory failure Dyspnea on exertion Cough, nonproductive RLL pneumonia, likely gram negative Atelectasis Pulmonary edema Metabolic acidosis Elevated troponin Hypokalemia Nicotine dependence Methamphetamine abuse Plan: Supplemental oxygen 2 LPM NC Titrate to keep O2 sats above 92%. Taper O2 as tolerated. ABG reviewed, compensated. Metabolic acidosis w/ respiratory compensation. CXR demonstrated pulmonary vascular congestion Lasix 20 mg IVP given x1 Monitor ins and outs. Elevated troponin - F/u Cardiology recommendations Bronchodilators Started Mucomyst. Continue steroids Continue antibiotics Incentive spirometry Diurese w/ Lasix as tolerated Monitor renal function. Monitor electrolytes. Supplement as necessary. Monitor ins and outs. Potassium supplementation Smoking cessation discussed for greater than 10 minutes. DVT prophylaxis. Prognosis: Poor given patient's multiple co-morbidities. Rest of plan per hospitalist and other consultants. Thank you Dr. Callahan for allowing me to participate in this patient's care. Further recommendations will depend on the patient's clinical course. Please do not hesitate to contact me if you have any questions or concerns. This medical document was created using an electronic medical record system with [employer] computerized dictation system. Although these documentations are being carefully reviewed, there may still be some phonetic and typographical changes. The errors are purely typographical, due to imperfection on the software program, and do not reflect any compromise in the patient's medical care. Plan discussed with: Patient, Other (URBI Gonzalez/MD Callahan) QI ARAUZ MD Jan 26, 2024 18:13
[2024-01-26] MEDS: FUROSEMIDE 20 MG/2 ML VIAL IV ONE (18:15)
[2024-01-26 18:38] VITALS: PULSE 91; RESP 18; O2SAT 98
[2024-01-26 19:30] VITALS: PULSE 115; RESP 22; O2SAT 97
[2024-01-26] MEDS: ACETYLCYSTEINE 20%(200MG/ML) SOL 4ML NEB SCH (22:00)
[2024-01-26 22:15] VITALS: BP 126/82; PULSE 96; RESP 15; TEMP 97.5; O2SAT 100
[2024-01-26] MEDS: DOCUSATE SOD 100 MG CAP PO PRN (23:13)
[2024-01-27] VITALS (15 sets, daily range): BP systolic 108–149; BP diastolic 74–94; PULSE 87–119; RESP 15–24; TEMP 97.3–98; O2SAT 97–100
[2024-01-27] MEDS ORDERED: NICOTINE 14 MG/24HR TOPICAL PATCH TD ONE (00:45)
[2024-01-27 06:12] LABS: Basophils # (auto) 0 10 ^3/uL (0-0.2); Basophils % (auto) 0.2 % (0.0-2.0); Eosinophils # (auto) 0 10 ^3/uL (0-0.8); Hematocrit 36.8 % (36.0-46.0); Hemoglobin 12.1 g/dL (12.2-16.2); Lymphocytes # (auto) 0.8 10 ^3/uL (0.4-5.4); Lymphocytes % (auto) 5.4 % (10.0-50.0); Mean Corpuscular Hemoglobin 31.3 pg (28.0-32.0); Monocytes # (auto) 0.3 10 ^3/uL (0-1.3); Neutrophils # (auto) 13.2 10 ^3/uL (1.6-8.6); Neutrophils % (auto) 92.4 % (37.0-80.0); Nucleated Red Blood Cells % 0.1 %; Platelet Count (auto) 325 10^3/uL (140-450); Red Blood Cells 3.87 10^6/uL (4.0-5.20); Red Cell Distribution Width 14.7 % (11.8-14.3); White Blood Cell 14.3 10^3/uL (4.4-10.8)
[2024-01-27 06:15] LABS: Albumin 4.1 g/dL (3.2-4.8); Anion Gap 8 (5-15); Aspartate Aminotransferase 36 U/L (13-40); BUN/Creatinine Ratio 15.8 (10.0-20.0); Blood Urea Nitrogen 18 mg/dL (9-23); Calcium 9.9 mg/dL (8.7-10.4); Carbon Dioxide 25 mmol/L (20-31); Chloride 105 mmol/L (98-107); Potassium 4.3 mmol/L (3.5-5.1); Sodium 138 mmol/L (136-145)
[2024-01-27 06:16] LABS: Bilirubin, Total 0.5 mg/dL (0.2-1.0); Total Protein 6.5 g/dL (5.7-8.2)
[2024-01-27 06:29] LABS: Alanine Aminotransferase 43 U/L (7-40); Alkaline Phosphatase 135 U/L (46-116); Glucose 173 mg/dL (74-106)
[2024-01-27 06:47] LABS: Urine Bacteria None Seen /hpf (None Seen)
[2024-01-27 07:06] LABS: Urine Blood Negative /uL (Negative); Urine Clarity Clear (Clear); Urine Color Light-Yellow (Yellow); Urine Hyaline Cast FEW /lpf (0 - 2); Urine Protein, UAD Negative (Negative); Urine Specific Gravity 1.015 (1.001-1.035); Urine Urobilinogen Normal (Negative); Urine WBC 3 /hpf (0 - 5)
[2024-01-27 07:18] LABS: Amphetamine Screen, Urine Pos (NEGATIVE); Barbiturate Scree,Urine Neg (NEGATIVE); Benzodiazephine Screen, Urine Neg (NEGATIVE); Cannabinoid Screen, Urine Neg (NEGATIVE); Cocaine Screen, Urine Neg (NEGATIVE); Opiate Scree,Urine Neg (NEGATIVE); Phencyclidine Screen, Urine Neg (NEGATIVE)
[2024-01-27] MEDS: ALBUTEROL SULF 2.5 MG/0.5ML(0.5%) NEB SOLN NEB PRN (08:15)
[2024-01-27] MEDS: IPRATROPIUM BROM 0.5 MG/2.5ML INH SOL NEB PRN (08:16)
[2024-01-27] MEDS: cefTRIAXone 1GM/50ML D5W 50 ML IV SCH (09:17)
[2024-01-27] MEDS: ASPirin 81 mg TAB PO SCH (09:17)
[2024-01-27] MEDS: AZITHROMYCIN 500MG/ 250ML 250 ML IV SCH (10:27)
[2024-01-27] MEDS: FUROSEMIDE 40 MG/4 ML VIAL IV SCH (10:28)
--- NOTE | 2024-01-27 11:11 | DVHPN2 ---
Reviewed: Care Plan, H&P, Labs, Medications, Previous Orders, Radiology Changes from previous H/P or p: No Changes Eyes: No Pain, No Vision change, No Conjunctivae inflammation, No Eyelid inflammation, No Other, No Redness ENT: No Ear pain, No Ear discharge, No Nose pain, No Nose discharge, No Nose congestion, No Mouth pain, No Mouth swelling, No Throat pain, No Throat swelling, No Other Cardiovascular: No Chest Pain, No Palpitations, No Orthopnea, No Paroxysmal Noc. Dyspnea, No Edema, No Lt Headedness, No Other Respiratory: Cough, Dry, Shortness of breath, SOB with excertion, Wheezing; No Hemoptysis, No Pleuritic Pain, No Sputum, No Other Gastrointestinal: No Nausea, No Vomiting, No Abdominal Pain, No Diarrhea, No Constipation, No Melena, No Hematochezia, No Other Genitourinary: No Dysuria, No Frequency, No Incontinence, No Hematuria, No Retention, No Other Musculoskeletal: No other, No neck pain, No shoulder pain, No arm pain, No back pain, No hand pain, No leg pain, No foot pain Skin: No Rash, No Lesions, No Jaundice, No Bruising, No Other Objective Vitals Vital Signs Date Time Temp Pulse Resp B/P (MAP) Pulse Ox O2 Delivery O2 Flow Rate FiO2 01/27/24 10:28 132/74 01/27/24 09:00 98.0 116 19 100 98.0 01/27/24 08:16 Room Air 0.0 01/27/24 08:16 21 Intake/Output Intake and Output 01/27/24 07:00 Intake Total 490 ml Output Total 120 ml Balance 370 ml Intake Oral 240 ml IV Total 250 ml Output Urine Total 120 ml Medications Current Medications Medications Dose Ordered Sig/Desirae Route Start Time Stop Time Status Last Admin Dose Admin Sodium Chloride 10 ml Q8HR IV 01/26/24 14:00 01/27/24 06:00 10 ML Acetaminophen/ Hydrocodone Bitart 1 tab Q4HP PRN PO 01/26/24 07:30 Ondansetron HCl 4 mg Q4HP PRN IV 01/26/24 07:30 Docusate Sodium 100 mg BIDPRN PRN PO 01/26/24 07:30 01/26/24 23:13 100 MG Acetaminophen 650 mg Q6HP PRN PO 01/26/24 07:30 Nitroglycerin 0.4 mg Q5MINP PRN SL 01/26/24 07:30 Morphine Sulfate 2 mg Q30M PRN IV 01/26/24 07:30 Azithromycin 250 ml @ 125 mls/hr DAILY IV 01/27/24 10:00 01/27/24 10:27 125 MLS/HR Ceftriaxone Sodium 50 ml @ 100 mls/hr DAILY@09 IV 01/27/24 09:00 01/27/24 09:17 100 MLS/HR Methylprednisolone Sodium Succinate 40 mg BID IV 01/26/24 10:00 01/27/24 09:16 40 MG Albuterol 2.5 mg Q4HPRN PRN NEB 01/26/24 07:30 01/27/24 08:15 2.5 MG Ipratropium [place] 0.5 mg Q4HPRN PRN NEB 01/26/24 07:30 01/27/24 08:16 0.5 MG Aspirin 81 mg DAILY PO 01/27/24 10:00 01/27/24 09:17 81 MG Acetylcysteine 200 mg Q8HR NEB 01/26/24 22:00 01/29/24 21:59 01/27/24 08:16 200 MG Furosemide 40 mg BID IV 01/27/24 10:00 01/27/24 10:28 40 MG Laboratory Results Laboratory Tests 01/27/24 05:36 Chemistry Test 01/26/24 15:17 01/27/24 05:36 Magnesium Level 2.1 mg/dL (1.6-2.6) Albumin 4.1 g/dL (3.2-4.8) Calcium Level 9.9 mg/dL (8.7-10.4) Total Protein 6.5 g/dL (5.7-8.2) LFT Test 01/27/24 05:36 Alanine Aminotransferase (ALT) 43 U/L (7-40) H Alkaline Phosphatase 135 U/L (46-116) H Aspartate Amino Transferase (AST) 36 U/L (13-40) Total Bilirubin 0.5 mg/dL (0.2-1.0) Urinalysis Test 01/27/24 06:00 Urine Color Light-yellow (Yellow) Urine Clarity Clear (Clear) Urine pH 6.0 (5.0-9.0) Urine Specific [place] 1.015 (1.001-1.035) Urine Protein Negative (Negative) Urine Ketones Negative (Negative) Urine Blood Negative /uL (Negative) Urine Nitrite Negative (Negative) Urine Bilirubin Negative (Negative) Urine Urobilinogen Normal mg/dL (Negative) Urine Leukocyte Esterase Negative /uL (Negative) Urine RBC 1 /hpf (0 - 4) Urine WBC 3 /hpf (0 - 5) Urine Squamous Epithelial Cells Few /hpf (<5) Urine Bacteria None seen /hpf (None Seen) Urine Hyaline Casts Few /lpf (0 - 2) Urine Glucose Normal mg/dL (Normal) Microbiology Microbiology Date/Time Source Procedure Growth Status 01/26/24 05:54 Blood Blood Culture - Preliminary NO GROWTH AFTER 24 HOURS OF INCUBATION. Resulted Labs and/or images reviewed: Labs reviewed by me, Image(s) reviewed by me Assessment/Plan Assessment/Plan NSTEMI type 2 likely due to COPD exacerbation Rule out structural heart disease Acute hypoxic respiratory failure likely due to COPD exacerbation COPD exacerbation, albuterol Atrovent Solu-Medrol SIRS vs Sepsis Possible congestive heart failure BNP 1217 Right Lower lobe community-acquired Pneumonia, Rocephin azithromycin Hypokalemia, Tobacco dependence, counseling Time spent 65 minutes Patient is full code Advanced care planning time 20 minutes Plan discussed with: Patient My Orders Orders - MONTSERRAT OTERO MD Procedure Category Date Status Time Education - Smoking RIANA 01/26/24 In Process Cessation 23:45 * Smoking Cessation CONS 01/26/24 Transmitted Consult 23:45 Date of Service: Jan 27, 2024 Billing Provider: MONTSERRAT OTERO MD Common Visit Codes: [id number] INP/OBS CARE(HIGH) MONTSERRAT OTERO MD Jan 27, 2024 11:11
--- NOTE | 2024-01-27 11:51 | DVHPNRES ---
Progress Note Date Seen: Jan 27, 2024 Resident Creating Document: DEMETRIO PULIDO RESIDENT Medical Necessity Reason Pt with a Central, PICC or Fol: No Subjective Review of Systems Patient seen and examined at the bedside. Patient reported improvement in her symptoms since admission. Initiated GDMT and Lasix Patient reports: No new complaints Objective vital signs Vital Sign Date Time Temp Pulse Resp B/P (MAP) Pulse Ox O2 Delivery O2 Flow Rate FiO2 01/27/24 10:28 132/74 01/27/24 09:00 98.0 116 19 100 98.0 01/27/24 08:16 Room Air 0.0 01/27/24 08:16 21 Total Intake and Output 01/26/24 01/26/24 01/27/24 15:00 23:00 07:00 Intake Total 250 ml 240 ml Output Total 120 ml Balance 250 ml 120 ml medications Current Medications Medications Dose Ordered Sig/Desirae Route Start Time Stop Time Status Last Admin Dose Admin Sodium Chloride 10 ml Q8HR IV 01/26/24 14:00 01/27/24 06:00 10 ML Acetaminophen/ Hydrocodone Bitart 1 tab Q4HP PRN PO 01/26/24 07:30 Ondansetron HCl 4 mg Q4HP PRN IV 01/26/24 07:30 Docusate Sodium 100 mg BIDPRN PRN PO 01/26/24 07:30 01/26/24 23:13 100 MG Acetaminophen 650 mg Q6HP PRN PO 01/26/24 07:30 Nitroglycerin 0.4 mg Q5MINP PRN SL 01/26/24 07:30 Morphine Sulfate 2 mg Q30M PRN IV 01/26/24 07:30 Azithromycin 250 ml @ 125 mls/hr DAILY IV 01/27/24 10:00 01/27/24 10:27 125 MLS/HR Ceftriaxone Sodium 50 ml @ 100 mls/hr DAILY@09 IV 01/27/24 09:00 01/27/24 09:17 100 MLS/HR Methylprednisolone Sodium Succinate 40 mg BID IV 01/26/24 10:00 01/27/24 09:16 40 MG Albuterol 2.5 mg Q4HPRN PRN NEB 01/26/24 07:30 01/27/24 08:15 2.5 MG Ipratropium [place] 0.5 mg Q4HPRN PRN NEB 01/26/24 07:30 01/27/24 08:16 0.5 MG Aspirin 81 mg DAILY PO 01/27/24 10:00 01/27/24 09:17 81 MG Acetylcysteine 200 mg Q8HR NEB 01/26/24 22:00 01/29/24 21:59 01/27/24 08:16 200 MG Furosemide 40 mg BID IV 01/27/24 10:00 01/27/24 10:28 40 MG Cyclobenzaprine HCl 10 mg TID PO 01/27/24 14:00 UNV Zolpidem Tartrate 10 mg HSPRN PRN PO 01/27/24 11:30 UNV Examination General Appearance: Alert, Oriented X3, Cooperative, moderate distress HEENT: Atraumatic, Mucous membranes dry Respiratory: Clear to auscultation, Normal air movement, mild crackles Cardiovascular: Regular rate, Normal S1, Normal S2, No murmurs Abdominal: Active bowel sounds, Soft, no distention, no tenderness Extremities: Trace to 1+ edema in RLE, Normal pulses, No tenderness Skin: No Significant rash Neuro: Normal speech, sensorimotor deficits none Psych/Mental Status: Mental status NL, Mood NL Nurse was there as sharperone during examination laboratory and microbiology Laboratory Tests 01/27/24 05:36 Test 01/27/24 05:36 Range/Units Serum Glucose 173 H 74-106 mg/dL Microbiology Date/Time Source Procedure Growth Status 01/26/24 05:54 Blood Blood Culture - Preliminary NO GROWTH AFTER 24 HOURS OF INCUBATION. Resulted Labs and/or images reviewed: Labs reviewed by me, Image(s) reviewed by me Problem List/Assessment/Plan Problem List/Assessment/Plan Acute on chronic decompensated HFrEF with NYHA class IV with EF:10-15%. 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 Pneumonia likely bacterial Gram-/+ Hypokalemia, Tobacco dependence, Plan/Recommendation We will continue with the following plan/recommendations (Dr. Weller): Echocardiogram showed severely dilated LV, reduce systolic function with EF 10- 15% Chest pain protocol Continue with aspirin for now Risk factor modification Discussed with Dr. Coffey, initiated Lasix 40 mg IV b.i.d. and GDMT with Entresto, hold beta-blockers for now due to given fluid overload and positive methamphetamines, we can start while closer to discharge. Given that the patient amphetamine abuse, patient not a candidate for invasive inpatient workup at this time, only conservative management indicated at this time along with aggressive risk factor modifications and counseled regarding cessation of drug abuse for 17 minutes. Case discussed with Dr Coffey, patient and RN. Plan discussed with: Patient My Orders My Orders Orders - DEMETRIO PULIDO RESIDENT Procedure Category Date Status Time Furosemide Injection PHA 01/27/24 In Process (Lasix Injection) 10:00 Visit Coding Cardiology RES Date of Service: Jan 27, 2024 Billing Provider: SUKHI SHELTON MD Cardiology Common Codes: [id number] INP/OBS CARE(Mod) DEMETRIO PULIDO RESIDENT Jan 27, 2024 11:51
[2024-01-27] MEDS: HYDROcodone-ACET 5/325MG TAB PO PRN (12:11)
[2024-01-27] MEDS: CYCLOBENZAPRINE HCL 10 MG TAB PO SCH (13:37)
[2024-01-27] MEDS: SACUBITRIL-VALSARTAN 24mg/26mg TAB PO SCH (21:26)
[2024-01-27] MEDS: ZOLPIDEM TARTRATE 5 MG TAB PO PRN (21:27)
--- NOTE | 2024-01-27 22:28 | DVHPN2 ---
Progress Note - Dictate Date Seen: Jan 27, 2024 Medical Necessity Reason Pt with a Central, PICC or Fol: No Subjective Patient seen and examined at bedside. Remains on supplemental oxygen Overnight events reviewed. vital signs Vital Sign Date Time Temp Pulse Resp B/P (MAP) Pulse Ox O2 Delivery O2 Flow Rate FiO2 01/27/24 21:27 121/85 01/27/24 21:00 97.3 114 20 98 97.3 01/27/24 19:48 Nasal Cannula* 3 32 Total Intake and Output 01/26/24 01/26/24 01/27/24 15:00 23:00 07:00 Intake Total 250 ml 240 ml Output Total 120 ml Balance 250 ml 120 ml medications Current Medications Medications Dose Ordered Sig/Desirae Route Start Time Stop Time Status Last Admin Dose Admin Sodium Chloride 10 ml Q8HR IV 01/26/24 14:00 01/27/24 21:27 10 ML Acetaminophen/ Hydrocodone Bitart 1 tab Q4HP PRN PO 01/26/24 07:30 01/27/24 12:11 1 TAB Ondansetron HCl 4 mg Q4HP PRN IV 01/26/24 07:30 Docusate Sodium 100 mg BIDPRN PRN PO 01/26/24 07:30 01/26/24 23:13 100 MG Acetaminophen 650 mg Q6HP PRN PO 01/26/24 07:30 Nitroglycerin 0.4 mg Q5MINP PRN SL 01/26/24 07:30 Morphine Sulfate 2 mg Q30M PRN IV 01/26/24 07:30 Azithromycin 250 ml @ 125 mls/hr DAILY IV 01/27/24 10:00 01/27/24 10:27 125 MLS/HR Ceftriaxone Sodium 50 ml @ 100 mls/hr DAILY@09 IV 01/27/24 09:00 01/27/24 09:17 100 MLS/HR Methylprednisolone Sodium Succinate 40 mg BID IV 01/26/24 10:00 01/27/24 21:27 40 MG Albuterol 2.5 mg Q4HPRN PRN NEB 01/26/24 07:30 01/27/24 19:00 2.5 MG Ipratropium [place] 0.5 mg Q4HPRN PRN NEB 01/26/24 07:30 01/27/24 19:00 0.5 MG Aspirin 81 mg DAILY PO 01/27/24 10:00 01/27/24 09:17 81 MG Acetylcysteine 200 mg Q8HR NEB 01/26/24 22:00 01/29/24 21:59 01/27/24 19:00 200 MG Furosemide 40 mg BID IV 01/27/24 10:00 01/27/24 21:27 40 MG Cyclobenzaprine HCl 10 mg TID PO 01/27/24 14:00 01/27/24 21:26 10 MG Zolpidem Tartrate 10 mg HSPRN PRN PO 01/27/24 11:30 01/27/24 21:27 10 MG Sacubitril/ Valsartan 1 tab BID PO 01/27/24 22:00 01/27/24 21:26 1 TAB objective Gen.: Patient lying in bed in no apparent distress. On supplemental oxygen. Head: Normocephalic, atraumatic. Eyes: EOMI/PERRLA. Ears: Normal hearing. Normal anatomy. Neck/trachea: Trachea midline, supple. Nose: Normal external anatomy. Mouth: Moist mucous membranes. Chest: Decreased air entry bilaterally. No wheezing or rhonchi. Cardiovascular: Positive S1, positive S2. Regular rate and rhythm. Abdomen: Positive bowel sounds in all 4 quadrants. Soft, non-tender, non- distended. : Deferred. Rectal: Deferred. Skin: Warm, dry. Intact. Extremities: 2+ radial pulses bilaterally. No lower extremity edema. Neuro: Awake, alert, oriented x3. No gross motor or sensory deficits. Cranial nerves II through XII intact. Gait not assessed. laboratory and microbiology Laboratory Tests 01/27/24 05:36 Test 01/27/24 05:36 Range/Units Serum Glucose 173 H 74-106 mg/dL Assessment/Plan Impression: Acute hypoxic respiratory failure Dyspnea on exertion Cough, nonproductive RLL pneumonia, likely gram negative Atelectasis Pulmonary edema Metabolic acidosis Elevated troponin Hypokalemia Nicotine dependence Events: Remains on supplemental oxygen, 2 LPM NC Taper O2 as tolerated Continue bronchodilators Continue steroids Continue antibiotics Incentive spirometry Diurese w/ Lasix 40 mg BID Monitor renal function Labs and imaging reviewed. Rest of plan as noted below. Plan: Supplemental oxygen 2 LPM NC Titrate to keep O2 sats above 92%. Taper O2 as tolerated. ABG reviewed, compensated. Metabolic acidosis w/ respiratory compensation. CXR demonstrated pulmonary vascular congestion Lasix 20 mg IVP given x1 on 01/25 Elevated troponin - Cardiology recommendations appreciated Bronchodilators Started Mucomyst. Continue steroids Continue antibiotics Incentive spirometry Diurese w/ Lasix as tolerated Monitor renal function. Monitor electrolytes. Supplement as necessary. Monitor ins and outs. Potassium supplementation Smoking cessation discussed for greater than 10 minutes. DVT prophylaxis. Prognosis: Poor given patient's multiple co-morbidities. Rest of plan per hospitalist and other consultants. Thank you Dr. Callahan for allowing me to participate in this patient's care. Further recommendations will depend on the patient's clinical course. Please do not hesitate to contact me if you have any questions or concerns. This medical document was created using an electronic medical record system with [employer] dictation system. Although these documentations are being carefully reviewed, there may still be some phonetic and typographical changes. The errors are purely typographical, due to imperfection on the software program, and do not reflect any compromise in the patient's medical care. Plan discussed with: Patient, Other (RUBI Pepe) QI ARAUZ MD Jan 27, 2024 22:28
[2024-01-28] VITALS (15 sets, daily range): BP systolic 96–125; BP diastolic 55–73; PULSE 62–107; RESP 16–20; TEMP 96.7–98.8; O2SAT 95–100
[2024-01-28 07:14] LABS: Basophils # (auto) 0 10 ^3/uL (0-0.2); Basophils % (auto) 0.1 % (0.0-2.0); Eosinophils # (auto) 0 10 ^3/uL (0-0.8); Hematocrit 36.2 % (36.0-46.0); Hemoglobin 11.7 g/dL (12.2-16.2); Lymphocytes % (auto) 5.8 % (10.0-50.0); Mean Corpuscular Hemoglobin 30.5 pg (28.0-32.0); Mean Corpuscular Hgb Conc. 32.4 g/dL (32.0-36.0); Mean Corpuscular Volume 94.2 fL (80.0-100.0); Monocytes # (auto) 0.7 10 ^3/uL (0-1.3); Monocytes % (auto) 3.8 % (0.0-12.0); Neutrophils # (auto) 16.1 10 ^3/uL (1.6-8.6); Neutrophils % (auto) 90.3 % (37.0-80.0); Platelet Count (auto) 303 10^3/uL (140-450); Red Blood Cells 3.84 10^6/uL (4.0-5.20); Red Cell Distribution Width 14.2 % (11.8-14.3); White Blood Cell 17.9 10^3/uL (4.4-10.8)
[2024-01-28 07:24] LABS: Albumin 3.8 g/dL (3.2-4.8); Alkaline Phosphatase 113 U/L (46-116); Anion Gap 7 (5-15); BUN/Creatinine Ratio 22.9 (10.0-20.0); Blood Urea Nitrogen 22 mg/dL (9-23); Calcium 9.5 mg/dL (8.7-10.4); Carbon Dioxide 26 mmol/L (20-31); Chloride 104 mmol/L (98-107); Potassium 3.9 mmol/L (3.5-5.1); Sodium 137 mmol/L (136-145)
[2024-01-28 07:25] LABS: Aspartate Aminotransferase 24 U/L (13-40); Bilirubin, Total 0.4 mg/dL (0.2-1.0); Total Protein 5.9 g/dL (5.7-8.2)
[2024-01-28 07:26] LABS: Alanine Aminotransferase 42 U/L (7-40); Glucose 139 mg/dL (74-106)
--- NOTE | 2024-01-28 09:44 | DVHPN2 ---
Reviewed: Care Plan, H&P, Labs, Medications, Previous Orders, Radiology Changes from previous H/P or p: No Changes Eyes: No Pain, No Vision change, No Conjunctivae inflammation, No Eyelid inflammation, No Other, No Redness ENT: No Ear pain, No Ear discharge, No Nose pain, No Nose discharge, No Nose congestion, No Mouth pain, No Mouth swelling, No Throat pain, No Throat swelling, No Other Cardiovascular: No Chest Pain, No Palpitations, No Orthopnea, No Paroxysmal Noc. Dyspnea, No Edema, No Lt Headedness, No Other Respiratory: Cough, Dry, Shortness of breath, SOB with excertion, Wheezing; No Hemoptysis, No Pleuritic Pain, No Sputum, No Other Gastrointestinal: No Nausea, No Vomiting, No Abdominal Pain, No Diarrhea, No Constipation, No Melena, No Hematochezia, No Other Genitourinary: No Dysuria, No Frequency, No Incontinence, No Hematuria, No Retention, No Other Musculoskeletal: No other, No neck pain, No shoulder pain, No arm pain, No back pain, No hand pain, No leg pain, No foot pain Skin: No Rash, No Lesions, No Jaundice, No Bruising, No Other Objective Vitals Vital Signs Date Time Temp Pulse Resp B/P (MAP) Pulse Ox O2 Delivery O2 Flow Rate FiO2 01/28/24 08:43 109/77 01/28/24 06:48 104 20 99 01/28/24 06:43 Nasal Cannula* 2 28 01/28/24 05:00 96.7 96.7 Intake/Output Intake and Output 01/28/24 07:00 Intake Total 1540 ml Output Total 1075 ml Balance 465 ml Intake Oral 1240 ml IV Total 300 ml Output Urine Total 1075 ml # Voids 5 # Bowel Movements 1 Medications Current Medications Medications Dose Ordered Sig/Desirae Route Start Time Stop Time Status Last Admin Dose Admin Sodium Chloride 10 ml Q8HR IV 01/26/24 14:00 01/28/24 05:31 10 ML Acetaminophen/ Hydrocodone Bitart 1 tab Q4HP PRN PO 01/26/24 07:30 01/27/24 12:11 1 TAB Ondansetron HCl 4 mg Q4HP PRN IV 01/26/24 07:30 Docusate Sodium 100 mg BIDPRN PRN PO 01/26/24 07:30 01/26/24 23:13 100 MG Acetaminophen 650 mg Q6HP PRN PO 01/26/24 07:30 Nitroglycerin 0.4 mg Q5MINP PRN SL 01/26/24 07:30 Morphine Sulfate 2 mg Q30M PRN IV 01/26/24 07:30 Azithromycin 250 ml @ 125 mls/hr DAILY IV 01/27/24 10:00 01/28/24 08:51 125 MLS/HR Ceftriaxone Sodium 50 ml @ 100 mls/hr DAILY@09 IV 01/27/24 09:00 01/28/24 08:38 100 MLS/HR Methylprednisolone Sodium Succinate 40 mg BID IV 01/26/24 10:00 01/28/24 08:39 40 MG Albuterol 2.5 mg Q4HPRN PRN NEB 01/26/24 07:30 01/28/24 06:43 2.5 MG Ipratropium [place] 0.5 mg Q4HPRN PRN NEB 01/26/24 07:30 01/28/24 06:43 0.5 MG Aspirin 81 mg DAILY PO 01/27/24 10:00 01/28/24 08:38 81 MG Acetylcysteine 200 mg Q8HR NEB 01/26/24 22:00 01/29/24 21:59 01/28/24 06:43 200 MG Furosemide 40 mg BID IV 01/27/24 10:00 01/28/24 08:43 40 MG Cyclobenzaprine HCl 10 mg TID PO 01/27/24 14:00 01/28/24 05:32 10 MG Zolpidem Tartrate 10 mg HSPRN PRN PO 01/27/24 11:30 01/27/24 21:27 10 MG Sacubitril/ Valsartan 1 tab BID PO 01/27/24 22:00 01/28/24 08:38 1 TAB Laboratory Results Laboratory Tests 01/28/24 06:23 Chemistry Test 01/28/24 06:23 Albumin 3.8 g/dL (3.2-4.8) Calcium Level 9.5 mg/dL (8.7-10.4) Total Protein 5.9 g/dL (5.7-8.2) LFT Test 01/28/24 06:23 Alanine Aminotransferase (ALT) 42 U/L (7-40) H Alkaline Phosphatase 113 U/L (46-116) Aspartate Amino Transferase (AST) 24 U/L (13-40) Total Bilirubin 0.4 mg/dL (0.2-1.0) Urinalysis Test 01/27/24 06:00 Urine Color Light-yellow (Yellow) Urine Clarity Clear (Clear) Urine pH 6.0 (5.0-9.0) Urine Specific [place] 1.015 (1.001-1.035) Urine Protein Negative (Negative) Urine Ketones Negative (Negative) Urine Blood Negative /uL (Negative) Urine Nitrite Negative (Negative) Urine Bilirubin Negative (Negative) Urine Urobilinogen Normal mg/dL (Negative) Urine Leukocyte Esterase Negative /uL (Negative) Urine RBC 1 /hpf (0 - 4) Urine WBC 3 /hpf (0 - 5) Urine Squamous Epithelial Cells Few /hpf (<5) Urine Bacteria None seen /hpf (None Seen) Urine Hyaline Casts Few /lpf (0 - 2) Urine Glucose Normal mg/dL (Normal) Microbiology Microbiology Date/Time Source Procedure Growth Status 01/26/24 05:54 Blood Blood Culture - Preliminary NO GROWTH AFTER 48 HOURS OF INCUBATION. Resulted Labs and/or images reviewed: Labs reviewed by me, Image(s) reviewed by me Assessment/Plan Assessment/Plan NSTEMI type 2 likely due to COPD exacerbation Rule out structural heart disease Acute hypoxic respiratory failure likely due to COPD exacerbation COPD exacerbation, albuterol Atrovent Solu-Medrol SIRS vs Sepsis Acute on chronic decompensated systolic congestive heart failure: NYHA classification IV Lasix 40 mg IV b.i.d. Entresto, ejection fraction 10-15 percent not a candidate for invasive procedure secondary to drug abuse, cardiology consult by appreciated Right Lower lobe community-acquired Pneumonia, Rocephin azithromycin Chronic methamphetamine abuse SIRS Tobacco dependence, counseling Time spent 65 minutes Patient is full code Condition guarded Plan discussed with: Patient My Orders Orders - MONTSERRAT OTERO MD Procedure Category Date Status Time Cyclobenzaprine PHA 01/27/24 In Process Tablet (Flexeril 14:00 Zolpidem Tartrate PHA 01/27/24 In Process (Ambien) 11:30 Complete Blood Count LAB 01/29/24 Verified 04:00 Complete Blood Count LAB 01/30/24 Verified 04:00 Comprehensive LAB 01/29/24 Verified Metabolic Panel 04:00 Comprehensive LAB 01/30/24 Verified Metabolic Panel 04:00 Date of Service: Jan 28, 2024 Billing Provider: MONTSERRAT OTERO MD Common Visit Codes: [id number] CARE 30-74 MIN MONTSERRAT OTERO MD Jan 28, 2024 09:44
--- NOTE | 2024-01-28 16:38 | DVHPN2 ---
Progress Note - Dictate Date Seen: Jan 28, 2024 Medical Necessity Reason Pt with a Central, PICC or Fol: No Subjective Patient seen and examined at bedside. Remains on supplemental oxygen Overnight events reviewed. vital signs Vital Sign Date Time Temp Pulse Resp B/P (MAP) Pulse Ox O2 Delivery O2 Flow Rate FiO2 01/28/24 13:42 107 20 100 01/28/24 13:35 Nasal Cannula* 2 28 01/28/24 13:00 98.2 104/65 (78) 98.2 Total Intake and Output 01/27/24 01/27/24 01/28/24 15:00 23:00 07:00 Intake Total 300 ml 1000 ml 240 ml Output Total 1075 ml Balance 300 ml 1000 ml -835 ml medications Current Medications Medications Dose Ordered Sig/Desirae Route Start Time Stop Time Status Last Admin Dose Admin Sodium Chloride 10 ml Q8HR IV 01/26/24 14:00 01/28/24 05:31 10 ML Acetaminophen/ Hydrocodone Bitart 1 tab Q4HP PRN PO 01/26/24 07:30 01/27/24 12:11 1 TAB Ondansetron HCl 4 mg Q4HP PRN IV 01/26/24 07:30 Docusate Sodium 100 mg BIDPRN PRN PO 01/26/24 07:30 01/26/24 23:13 100 MG Acetaminophen 650 mg Q6HP PRN PO 01/26/24 07:30 Nitroglycerin 0.4 mg Q5MINP PRN SL 01/26/24 07:30 Morphine Sulfate 2 mg Q30M PRN IV 01/26/24 07:30 Azithromycin 250 ml @ 125 mls/hr DAILY IV 01/27/24 10:00 01/28/24 08:51 125 MLS/HR Ceftriaxone Sodium 50 ml @ 100 mls/hr DAILY@09 IV 01/27/24 09:00 01/28/24 08:38 100 MLS/HR Methylprednisolone Sodium Succinate 40 mg BID IV 01/26/24 10:00 01/28/24 08:39 40 MG Albuterol 2.5 mg Q4HPRN PRN NEB 01/26/24 07:30 01/28/24 13:35 2.5 MG Ipratropium [place] 0.5 mg Q4HPRN PRN NEB 01/26/24 07:30 01/28/24 13:35 0.5 MG Aspirin 81 mg DAILY PO 01/27/24 10:00 01/28/24 08:38 81 MG Acetylcysteine 200 mg Q8HR NEB 01/26/24 22:00 01/29/24 21:59 01/28/24 13:35 200 MG Furosemide 40 mg BID IV 01/27/24 10:00 01/28/24 08:43 40 MG Cyclobenzaprine HCl 10 mg TID PO 01/27/24 14:00 01/28/24 05:32 10 MG Zolpidem Tartrate 10 mg HSPRN PRN PO 01/27/24 11:30 01/27/24 21:27 10 MG Sacubitril/ Valsartan 1 tab BID PO 01/27/24 22:00 01/28/24 08:38 1 TAB objective Gen.: Patient lying in bed in no apparent distress. On supplemental oxygen. Head: Normocephalic, atraumatic. Eyes: EOMI/PERRLA. Ears: Normal hearing. Normal anatomy. Neck/trachea: Trachea midline, supple. Nose: Normal external anatomy. Mouth: Moist mucous membranes. Chest: Decreased air entry bilaterally. No wheezing or rhonchi. Cardiovascular: Positive S1, positive S2. Regular rate and rhythm. Abdomen: Positive bowel sounds in all 4 quadrants. Soft, non-tender, non- distended. : Deferred. Rectal: Deferred. Skin: Warm, dry. Intact. Extremities: 2+ radial pulses bilaterally. No lower extremity edema. Neuro: Awake, alert, oriented x3. No gross motor or sensory deficits. Cranial nerves II through XII intact. Gait not assessed. laboratory and microbiology Laboratory Tests 01/28/24 06:23 Test 01/28/24 06:23 Range/Units Serum Glucose 139 H 74-106 mg/dL Assessment/Plan Impression: Acute hypoxic respiratory failure Dyspnea on exertion Cough, nonproductive RLL pneumonia, likely gram negative Atelectasis Pulmonary edema Metabolic acidosis Elevated troponin Hypokalemia Nicotine dependence Events: Remains on supplemental oxygen, 3 LPM NC Taper O2 as tolerated Continue bronchodilators Continue steroids Continue antibiotics Incentive spirometry Maintain euvolemia w/ Lasix 40 mg BID Monitor renal function Labs and imaging reviewed. Rest of plan as noted below. Plan: Supplemental oxygen Titrate to keep O2 sats above 92%. ABG reviewed, compensated. Metabolic acidosis w/ respiratory compensation. CXR demonstrated pulmonary vascular congestion Lasix 20 mg IVP given x1 on 01/25 Elevated troponin - Cardiology recommendations appreciated Bronchodilators Started Mucomyst. Continue steroids Continue antibiotics Incentive spirometry Diurese w/ Lasix as tolerated Monitor renal function. Monitor electrolytes. Supplement as necessary. Monitor ins and outs. Potassium supplementation Smoking cessation discussed for greater than 10 minutes. DVT prophylaxis. Prognosis: Poor given patient's multiple co-morbidities. Rest of plan per hospitalist and other consultants. Thank you Dr. Callahan for allowing me to participate in this patient's care. Further recommendations will depend on the patient's clinical course. Please do not hesitate to contact me if you have any questions or concerns. This medical document was created using an electronic medical record system with [employer] dictation system. Although these documentations are being carefully reviewed, there may still be some phonetic and typographical changes. The errors are purely typographical, due to imperfection on the software program, and do not reflect any compromise in the patient's medical care. Plan discussed with: Patient, Other (RUBI Ehruz) QI ARAUZ MD Jan 28, 2024 16:38
[2024-01-28] MEDS: ZOLPIDEM TARTRATE 5 MG TAB PO PRN (21:43)
[2024-01-29] VITALS (15 sets, daily range): BP systolic 85–109; BP diastolic 48–67; PULSE 17–105; RESP 17–98; TEMP 96.8–98.8; O2SAT 94–100
[2024-01-29 07:04] LABS: Basophils # (auto) 0 10 ^3/uL (0-0.2); Basophils % (auto) 0.3 % (0.0-2.0); Eosinophils # (auto) 0 10 ^3/uL (0-0.8); Hematocrit 43.7 % (36.0-46.0); Hemoglobin 14.3 g/dL (12.2-16.2); Lymphocytes % (auto) 5.4 % (10.0-50.0); Mean Corpuscular Hemoglobin 30.7 pg (28.0-32.0); Mean Corpuscular Hgb Conc. 32.7 g/dL (32.0-36.0); Monocytes # (auto) 0.9 10 ^3/uL (0-1.3); Monocytes % (auto) 4.7 % (0.0-12.0); Neutrophils # (auto) 16.3 10 ^3/uL (1.6-8.6); Neutrophils % (auto) 89.6 % (37.0-80.0); Nucleated Red Blood Cells % 0.1 %; Platelet Count (auto) 356 10^3/uL (140-450); Red Blood Cells 4.65 10^6/uL (4.0-5.20); Red Cell Distribution Width 14.4 % (11.8-14.3); White Blood Cell 18.2 10^3/uL (4.4-10.8)
[2024-01-29 07:31] LABS: Albumin 3.7 g/dL (3.2-4.8); Alkaline Phosphatase 110 U/L (46-116); Anion Gap 7 (5-15); Aspartate Aminotransferase 20 U/L (13-40); BUN/Creatinine Ratio 22.3 (10.0-20.0); Bilirubin, Total 0.5 mg/dL (0.2-1.0); Blood Urea Nitrogen 21 mg/dL (9-23); Calcium 9.4 mg/dL (8.7-10.4); Carbon Dioxide 28 mmol/L (20-31); Chloride 102 mmol/L (98-107); Potassium 4.1 mmol/L (3.5-5.1); Sodium 137 mmol/L (136-145); Total Protein 5.9 g/dL (5.7-8.2)
[2024-01-29 07:50] LABS: Alanine Aminotransferase 49 U/L (7-40); Glucose 142 mg/dL (74-106)
--- NOTE | 2024-01-29 11:03 | DVHPN2 ---
Reviewed: Care Plan, H&P, Labs, Medications, Previous Orders, Radiology Changes from previous H/P or p: No Changes Eyes: No Pain, No Vision change, No Conjunctivae inflammation, No Eyelid inflammation, No Other, No Redness ENT: No Ear pain, No Ear discharge, No Nose pain, No Nose discharge, No Nose congestion, No Mouth pain, No Mouth swelling, No Throat pain, No Throat swelling, No Other Cardiovascular: No Chest Pain, No Palpitations, No Orthopnea, No Paroxysmal Noc. Dyspnea, No Edema, No Lt Headedness, No Other Respiratory: Cough, Dry, Shortness of breath, SOB with excertion, Wheezing; No Hemoptysis, No Pleuritic Pain, No Sputum, No Other Gastrointestinal: No Nausea, No Vomiting, No Abdominal Pain, No Diarrhea, No Constipation, No Melena, No Hematochezia, No Other Genitourinary: No Dysuria, No Frequency, No Incontinence, No Hematuria, No Retention, No Other Musculoskeletal: No other, No neck pain, No shoulder pain, No arm pain, No back pain, No hand pain, No leg pain, No foot pain Skin: No Rash, No Lesions, No Jaundice, No Bruising, No Other Objective Vitals Vital Signs Date Time Temp Pulse Resp B/P (MAP) Pulse Ox O2 Delivery O2 Flow Rate FiO2 01/29/24 09:46 17 98 100/63 97 2.0 28 01/29/24 07:53 96.8 96.8 01/29/24 07:00 Nasal Cannula Intake/Output Intake and Output 01/29/24 06:59 Intake Total 1100 ml Balance 1100 ml Intake Oral 800 ml IV Total 300 ml # Voids 4 Medications Current Medications Medications Dose Ordered Sig/Desirae Route Start Time Stop Time Status Last Admin Dose Admin Sodium Chloride 10 ml Q8HR IV 01/26/24 14:00 01/28/24 22:00 10 ML Acetaminophen/ Hydrocodone Bitart 1 tab Q4HP PRN PO 01/26/24 07:30 01/27/24 12:11 1 TAB Ondansetron HCl 4 mg Q4HP PRN IV 01/26/24 07:30 Docusate Sodium 100 mg BIDPRN PRN PO 01/26/24 07:30 01/26/24 23:13 100 MG Acetaminophen 650 mg Q6HP PRN PO 01/26/24 07:30 Nitroglycerin 0.4 mg Q5MINP PRN SL 01/26/24 07:30 Morphine Sulfate 2 mg Q30M PRN IV 01/26/24 07:30 Azithromycin 250 ml @ 125 mls/hr DAILY IV 01/27/24 10:00 01/29/24 10:28 125 MLS/HR Ceftriaxone Sodium 50 ml @ 100 mls/hr DAILY@09 IV 01/27/24 09:00 01/29/24 08:51 100 MLS/HR Methylprednisolone Sodium Succinate 40 mg BID IV 01/26/24 10:00 01/29/24 08:51 40 MG Albuterol 2.5 mg Q4HPRN PRN NEB 01/26/24 07:30 01/29/24 07:05 2.5 MG Ipratropium [place] 0.5 mg Q4HPRN PRN NEB 01/26/24 07:30 01/29/24 07:05 0.5 MG Aspirin 81 mg DAILY PO 01/27/24 10:00 01/29/24 08:52 81 MG Acetylcysteine 200 mg Q8HR NEB 01/26/24 22:00 01/29/24 21:59 01/29/24 07:06 200 MG Furosemide 40 mg BID IV 01/27/24 10:00 01/28/24 08:43 40 MG Cyclobenzaprine HCl 10 mg TID PO 01/27/24 14:00 01/28/24 21:43 10 MG Sacubitril/ Valsartan 1 tab BID PO 01/27/24 22:00 01/29/24 08:51 1 TAB Zolpidem Tartrate 5 mg HSPRN PRN PO 01/28/24 19:45 01/28/24 21:43 5 MG Laboratory Results Laboratory Tests 01/29/24 06:29 Chemistry Test 01/29/24 06:29 Albumin 3.7 g/dL (3.2-4.8) Calcium Level 9.4 mg/dL (8.7-10.4) Total Protein 5.9 g/dL (5.7-8.2) LFT Test 01/29/24 06:29 Alanine Aminotransferase (ALT) 49 U/L (7-40) H Alkaline Phosphatase 110 U/L (46-116) Aspartate Amino Transferase (AST) 20 U/L (13-40) Total Bilirubin 0.5 mg/dL (0.2-1.0) Urinalysis Test 01/27/24 06:00 Urine Color Light-yellow (Yellow) Urine Clarity Clear (Clear) Urine pH 6.0 (5.0-9.0) Urine Specific [place] 1.015 (1.001-1.035) Urine Protein Negative (Negative) Urine Ketones Negative (Negative) Urine Blood Negative /uL (Negative) Urine Nitrite Negative (Negative) Urine Bilirubin Negative (Negative) Urine Urobilinogen Normal mg/dL (Negative) Urine Leukocyte Esterase Negative /uL (Negative) Urine RBC 1 /hpf (0 - 4) Urine WBC 3 /hpf (0 - 5) Urine Squamous Epithelial Cells Few /hpf (<5) Urine Bacteria None seen /hpf (None Seen) Urine Hyaline Casts Few /lpf (0 - 2) Urine Glucose Normal mg/dL (Normal) Microbiology Microbiology Date/Time Source Procedure Growth Status 01/26/24 05:54 Blood Blood Culture - Preliminary NO GROWTH AFTER 72 HOURS OF INCUBATION. Resulted Labs and/or images reviewed: Labs reviewed by me, Image(s) reviewed by me Assessment/Plan Assessment/Plan NSTEMI type 2 likely due to COPD exacerbation Rule out structural heart disease Acute hypoxic respiratory failure likely due to COPD exacerbation COPD exacerbation, albuterol Atrovent Solu-Medrol SIRS vs Sepsis Acute on chronic decompensated systolic congestive heart failure: NYHA classification IV Lasix 40 mg IV b.i.d. Entresto, ejection fraction 10-15 percent not a candidate for invasive procedure secondary to drug abuse, cardiology consult by appreciated Right Lower lobe community-acquired Pneumonia, Rocephin azithromycin Chronic methamphetamine abuse SIRS Tobacco dependence, counseling Acute hypotension: NS 1 L bolus Time spent 65 minutes Patient is full code Condition guarded Plan discussed with: Patient My Orders Orders - MONTSERRAT OTERO MD Procedure Category Date Status Time Sodium Chloride 0.9% PHA 01/29/24 Logged 10:30 Date of Service: Jan 29, 2024 Billing Provider: MONTSERRAT OTERO MD Common Visit Codes: [id number] CARE 30-74 MIN MONTSERRAT OTERO MD Jan 29, 2024 11:03
[2024-01-29] MEDS: SODIUM CHLORIDE 0.9% 1,000 ML IV ONE (11:44)
[2024-01-29] MEDS: diphenhdrAMINE HCL 50 MG/1 ML VL IV ONE (22:09)
--- NOTE | 2024-01-29 23:17 | DVHPN2 ---
Progress Note - Dictate Date Seen: Jan 29, 2024 Medical Necessity Reason Pt with a Central, PICC or Fol: No Subjective Patient seen and examined at bedside. Remains on supplemental oxygen Overnight events reviewed. vital signs Vital Sign Date Time Temp Pulse Resp B/P (MAP) Pulse Ox O2 Delivery O2 Flow Rate FiO2 01/29/24 22:10 109/67 01/29/24 21:00 98.4 98 18 97 98.4 01/29/24 10:00 Room Air 2.0 01/29/24 10:00 28 Total Intake and Output 01/28/24 01/28/24 01/29/24 15:00 23:00 07:00 Intake Total 300 ml 800 ml Balance 300 ml 800 ml medications Current Medications Medications Dose Ordered Sig/Desirae Route Start Time Stop Time Status Last Admin Dose Admin Sodium Chloride 10 ml Q8HR IV 01/26/24 14:00 01/29/24 22:09 10 ML Acetaminophen/ Hydrocodone Bitart 1 tab Q4HP PRN PO 01/26/24 07:30 01/27/24 12:11 1 TAB Ondansetron HCl 4 mg Q4HP PRN IV 01/26/24 07:30 Docusate Sodium 100 mg BIDPRN PRN PO 01/26/24 07:30 01/26/24 23:13 100 MG Acetaminophen 650 mg Q6HP PRN PO 01/26/24 07:30 Nitroglycerin 0.4 mg Q5MINP PRN SL 01/26/24 07:30 Morphine Sulfate 2 mg Q30M PRN IV 01/26/24 07:30 Azithromycin 250 ml @ 125 mls/hr DAILY IV 01/27/24 10:00 01/29/24 10:28 125 MLS/HR Methylprednisolone Sodium Succinate 40 mg BID IV 01/26/24 10:00 01/29/24 22:09 40 MG Albuterol 2.5 mg Q4HPRN PRN NEB 01/26/24 07:30 01/29/24 14:37 2.5 MG Ipratropium [place] 0.5 mg Q4HPRN PRN NEB 01/26/24 07:30 01/29/24 14:37 0.5 MG Aspirin 81 mg DAILY PO 01/27/24 10:00 01/29/24 08:52 81 MG Furosemide 40 mg BID IV 01/27/24 10:00 01/29/24 22:10 40 MG Cyclobenzaprine HCl 10 mg TID PO 01/27/24 14:00 01/29/24 15:03 10 MG Sacubitril/ Valsartan 1 tab BID PO 01/27/24 22:00 01/29/24 08:51 1 TAB Zolpidem Tartrate 5 mg HSPRN PRN PO 01/28/24 19:45 01/28/24 21:43 5 MG objective Gen.: Patient lying in bed in no apparent distress. On supplemental oxygen. Head: Normocephalic, atraumatic. Eyes: EOMI/PERRLA. Ears: Normal hearing. Normal anatomy. Neck/trachea: Trachea midline, supple. Nose: Normal external anatomy. Mouth: Moist mucous membranes. Chest: Decreased air entry bilaterally. No wheezing or rhonchi. Cardiovascular: Positive S1, positive S2. Regular rate and rhythm. Abdomen: Positive bowel sounds in all 4 quadrants. Soft, non-tender, non- distended. : Deferred. Rectal: Deferred. Skin: Warm, dry. Intact. Extremities: 2+ radial pulses bilaterally. No lower extremity edema. Neuro: Awake, alert, oriented x3. No gross motor or sensory deficits. Cranial nerves II through XII intact. Gait not assessed. laboratory and microbiology Laboratory Tests 01/29/24 06:29 Test 01/29/24 06:29 Range/Units Serum Glucose 142 H 74-106 mg/dL Assessment/Plan Impression: Acute hypoxic respiratory failure Dyspnea on exertion Cough, nonproductive RLL pneumonia, likely gram negative Atelectasis Pulmonary edema Metabolic acidosis Elevated troponin Hypokalemia Nicotine dependence Events: Remains on supplemental oxygen, 2 LPM NC Taper O2 as tolerated Continue bronchodilators Continue steroids Continue antibiotics Stopped Flagyl Incentive spirometry Low blood pressure - monitor closely S/p IV fluid bolus Lasix on hold due to blood pressure Labs and imaging reviewed. Rest of plan as noted below. Plan: Supplemental oxygen Titrate to keep O2 sats above 92%. ABG reviewed, compensated. Metabolic acidosis w/ respiratory compensation. CXR demonstrated pulmonary vascular congestion Lasix 20 mg IVP given x1 on 01/25 Elevated troponin - Cardiology recommendations appreciated Bronchodilators Started Mucomyst. Continue steroids Continue antibiotics Incentive spirometry Monitor renal function. Monitor electrolytes. Supplement as necessary. Monitor ins and outs. Maintain euvolemia Smoking cessation discussed for greater than 10 minutes. DVT prophylaxis. Prognosis: Poor given patient's multiple co-morbidities. Rest of plan per hospitalist and other consultants. Thank you Dr. Callahan for allowing me to participate in this patient's care. Further recommendations will depend on the patient's clinical course. Please do not hesitate to contact me if you have any questions or concerns. This medical document was created using an electronic medical record system with [employer] dictation system. Although these documentations are being carefully reviewed, there may still be some phonetic and typographical changes. The errors are purely typographical, due to imperfection on the software program, and do not reflect any compromise in the patient's medical care. Plan discussed with: Patient, Other (RUBI Glover) QI ARAUZ MD Jan 29, 2024 23:17
[2024-01-30] VITALS (8 sets, daily range): BP systolic 91–100; BP diastolic 50–67; PULSE 76–96; RESP 16–19; TEMP 36.6; O2SAT 93–99
[2024-01-30 06:25] LABS: Basophils # (auto) 0 10 ^3/uL (0-0.2); Basophils % (auto) 0.1 % (0.0-2.0); Eosinophils # (auto) 0 10 ^3/uL (0-0.8); Hematocrit 43.5 % (36.0-46.0); Hemoglobin 13.9 g/dL (12.2-16.2); Lymphocytes % (auto) 5.2 % (10.0-50.0); Mean Corpuscular Hemoglobin 30.1 pg (28.0-32.0); Mean Corpuscular Hgb Conc. 32.1 g/dL (32.0-36.0); Mean Corpuscular Volume 93.9 fL (80.0-100.0); Monocytes # (auto) 0.6 10 ^3/uL (0-1.3); Monocytes % (auto) 3.4 % (0.0-12.0); Neutrophils % (auto) 91.3 % (37.0-80.0); Nucleated Red Blood Cells % 0.1 %; Platelet Count (auto) 386 10^3/uL (140-450); Red Blood Cells 4.63 10^6/uL (4.0-5.20); Red Cell Distribution Width 14.3 % (11.8-14.3); White Blood Cell 18.7 10^3/uL (4.4-10.8)
[2024-01-30 06:43] LABS: Albumin 3.5 g/dL (3.2-4.8); Alkaline Phosphatase 107 U/L (46-116); Anion Gap 8 (5-15); BUN/Creatinine Ratio 22.1 (10.0-20.0); Bilirubin, Total 0.4 mg/dL (0.2-1.0); Calcium 9.1 mg/dL (8.7-10.4); Carbon Dioxide 27 mmol/L (20-31); Chloride 103 mmol/L (98-107); Sodium 138 mmol/L (136-145)
[2024-01-30 06:49] LABS: Alanine Aminotransferase 44 U/L (7-40); Aspartate Aminotransferase 12 U/L (13-40); Blood Urea Nitrogen 23 mg/dL (9-23); Glucose 138 mg/dL (74-106); Total Protein 5.5 g/dL (5.7-8.2)
[2024-01-30] MEDS ORDERED: AZIT500T66 PO (10:21)
[2024-01-30] MEDS ORDERED: ALBUAER3 IN (10:21)
[2024-01-30] MEDS ORDERED: SACU1TAB PO (10:21)
[2024-01-30] MEDS ORDERED: METH4PAK PO (10:21)
--- NOTE | 2024-01-30 10:26 | DVHDS2 ---
Discharge Summary Date of Admission Jan 26, 2024 at 07:29 Date of Discharge: Jan 30, 2024 Admitting Diagnosis Shortness of breaths and chest pain Wounds: None Labs/Diagnostic Data: Laboratory Results Test 01/30/24 06:05 01/27/24 06:00 01/26/24 15:17 01/26/24 10:00 White Blood Count 18.7 10^3/uL (4.4-10.8) Red Blood Count 4.63 10^6/uL (4.0-5.20) Hemoglobin 13.9 g/dL (12.2-16.2) Hematocrit 43.5 % (36.0-46.0) Mean Corpuscular Volume 93.9 fL (80.0-100.0) Mean Corpuscular Hemoglobin 30.1 pg (28.0-32.0) Mean Corpuscular Hemoglobin Concent 32.1 g/dL (32.0-36.0) Red Cell Distribution Width 14.3 % (11.8-14.3) Platelet Count 386 10^3/uL (140-450) Mean Platelet Volume 8.2 fL (6.9-10.8) Neutrophils (%) (Auto) 91.3 % (37.0-80.0) Lymphocytes (%) (Auto) 5.2 % (10.0-50.0) Monocytes (%) (Auto) 3.4 % (0.0-12.0) Eosinophils (%) (Auto) 0.0 % (0.0-7.0) Basophils (%) (Auto) 0.1 % (0.0-2.0) Neutrophils # (Auto) 17.0 10 ^3/uL (1.6-8.6) Lymphocytes # (Auto) 1.0 10 ^3/uL (0.4-5.4) Monocytes # (Auto) 0.6 10 ^3/uL (0-1.3) Eosinophils # (Auto) 0 10 ^3/uL (0-0.8) Basophils # (Auto) 0 10 ^3/uL (0-0.2) Nucleated Red Blood Cells 0.1 % Sodium Level 138 mmol/L (136-145) Potassium Level 4.0 mmol/L (3.5-5.1) Chloride Level 103 mmol/L (98-107) Carbon Dioxide Level 27 mmol/L (20-31) Anion Gap 8 (5-15) Blood Urea Nitrogen 23 mg/dL (9-23) Creatinine 1.04 mg/dL (0.550-1.02) Glomerular Filtration Rate Calc 59 mL/min (>90) BUN/Creatinine Ratio 22.1 (10.0-20.0) Serum Glucose 138 mg/dL (74-106) Calcium Level 9.1 mg/dL (8.7-10.4) Total Bilirubin 0.4 mg/dL (0.2-1.0) Aspartate Amino Transferase (AST) 12 U/L (13-40) Alanine Aminotransferase (ALT) 44 U/L (7-40) Alkaline Phosphatase 107 U/L (46-116) Total Protein 5.5 g/dL (5.7-8.2) Albumin 3.5 g/dL (3.2-4.8) Urine Color Light-yellow (Yellow) Urine Clarity Clear (Clear) Urine pH 6.0 (5.0-9.0) Urine Specific [place] 1.015 (1.001-1.035) Urine Protein Negative (Negative) Urine Ketones Negative (Negative) Urine Blood Negative /uL (Negative) Urine Nitrite Negative (Negative) Urine Bilirubin Negative (Negative) Urine Urobilinogen Normal mg/dL (Negative) Urine Leukocyte Esterase Negative /uL (Negative) Urine RBC 1 /hpf (0 - 4) Urine WBC 3 /hpf (0 - 5) Urine Squamous Epithelial Cells Few /hpf (<5) Urine Bacteria None seen /hpf (None Seen) Urine Hyaline Casts Few /lpf (0 - 2) Urine Glucose Normal mg/dL (Normal) Urine Opiates Screen Neg (NEGATIVE) Urine Fentanyl Screen Neg (NEGATIVE) Urine Barbiturates Screen Neg (NEGATIVE) Urine Phencyclidine Screen Neg (NEGATIVE) Urine Amphetamines Screen Pos (NEGATIVE) Urine Benzodiazepines Screen Neg (NEGATIVE) Urine Cocaine Screen Neg (NEGATIVE) Urine Cannabinoids Screen Neg (NEGATIVE) Magnesium Level 2.1 mg/dL (1.6-2.6) Influenza Type A Antigen Negative (Negative) Influenza Type B Antigen Negative (Negative) SARS-CoV-2 Antigen (Rapid) Negative (NEGATIVE) Test 01/26/24 08:49 01/26/24 05:54 01/26/24 05:03 01/26/24 03:51 Prothrombin Time 11.9 sec (9.3-11.8) Prothrombin Time INR 1.13 (0.9-1.15) Activated Partial Thromboplast Time 25.0 SEC (24.5-34.5) Lactic Acid Level 1.6 mmol/L (0.4-2.0) Troponin I High Sensitivity 611 ng/L (</=34) Blood Gas Specimen Type Venous Blood Gas Sample Site Vbg - n/a Blood Gas Patient Temperature 37.0 Arterial Blood Date Drawn Martín Test N/a Venous Blood pH 7.410 (7.320-7.430) Venous Blood pCO2 at Patient Temp 30.8 mmHg (38.0-54.0) Venous Blood pO2 at Patient Temp 46.8 mmHg (23.0-48.0) Venous Blood HCO3 19.1 mmol/L (22.0-29.0) Venous Bld O2 Saturation (Measured) 80.5 % (60.0-85.0) Venous Blood Base Excess -4.5 mmol/L (-2.0-3.0) Venous Blood Total Hemoglobin 12.2 g/dL (12.0-16.0) Venous Blood Oxyhemoglobin 79.0 % (0.0-79.0) Venous Blood Carboxyhemoglobin 1.3 % (0.5-1.5) Venous Blood Methemoglobin 0.6 % (0.0-1.5) Blood Gas Modality Vb - n/a FiO2 % 36.0 Specimen Drawn By Er staff Test 01/26/24 03:40 Hemoglobin A1c 6.1 % A1C (<5.7) B-Type Natriuretic Peptide 1275.78 pg/mL (0-100) Triglycerides Level 99 mg/dL (< 150) Cholesterol Level 142 mg/dL (< 200) LDL Cholesterol 90 mg/dL (< 100) HDL Cholesterol 38 mg/dL (40-59) Thyroid Stimulating Hormone (TSH) 3.52 uIU/mL (0.55-4.78) Other Laboratory Tests 01/30/24 06:05 Brief Hx & Hospital Course: 68-year-old female with a chronic history of smoking COPD chronic congestive heart failure came in shortness of breath and chest pain. The patient was found to have non STEMI type 2 secondary to COPD exacerbation COPD exacerbation treated with albuterol Atrovent Solu-Medrol seen by pulmonology Dr. Rodriges. The patient had a systolic congestive heart failure exacerbation [place] [employer] class four given Lasix and Entresto ejection fraction 10-15 percent and not a candidate for any invasive procedure per Cardiology patient has history of drug abuse. right lower lobe community-acquired pneumonia treated with Rocephin and azithromycin patient was counseled about quitting smoking. Patient being discharged home. Prescription for azithromycin Medrol Dosepak Entresto and Ventolin MDI transmitted to the pharmacy. We will continue all her previous home medications. Consults/Reason for consult Cardiology consult Pulmonology consult Operations or Procedures Echocardiogram Condition at Discharge: Fair Final Diagnosis/Problems List NSTEMI type 2 likely due to COPD exacerbation Rule out structural heart disease Acute hypoxic respiratory failure likely due to COPD exacerbation COPD exacerbation, albuterol Atrovent Solu-Medrol SIRS vs Sepsis Acute on chronic decompensated systolic congestive heart failure: NYHA classification IV Lasix 40 mg IV b.i.d. Entresto, ejection fraction 10-15 percent not a candidate for invasive procedure secondary to drug abuse, cardiology consult by appreciated Right Lower lobe community-acquired Pneumonia, Rocephin azithromycin Chronic methamphetamine abuse SIRS Tobacco dependence, counseling Discharge Disposition: Home Discharge Instruct/Medications Diet: Cardiac 2g Na,low cholest Activity: Light activity Follow Up/Referral: Resume all previous home medications Use new medications as prescribed Follow up with the primary Dr in one week Medications: Entresto Medrol Dosepak Azithromycin Ventolin MDI Transmitted to follow up 39 (Time taken for discharge summary 39 minutes) Discharge Statement: "Patient was advised to return to the ER or call 911 if any headaches, dizziness, shortness of breath, chest pain, abdominal pain, bleeding, fevers, or worsening of medical condition. Patient was counseled about treatment plan, medications, possible side effects, patientverbalized understanding. All questions were answered to the best of my ability. This discharge took greater then 30 minutes in planning, reviewing documentation, counseling the patient, and discussing with other team members." ASSESSMENT ASSESSMENT Hospital Course Marginally improved Assessment NSTEMI type 2 likely due to COPD exacerbation Rule out structural heart disease Acute hypoxic respiratory failure likely due to COPD exacerbation COPD exacerbation, albuterol Atrovent Solu-Medrol SIRS vs Sepsis Acute on chronic decompensated systolic congestive heart failure: NYHA classification IV Lasix 40 mg IV b.i.d. Entresto, ejection fraction 10-15 percent not a candidate for invasive procedure secondary to drug abuse, cardiology consult by appreciated Right Lower lobe community-acquired Pneumonia, Rocephin azithromycin Chronic methamphetamine abuse SIRS Tobacco dependence, counseling Date of Service: Jan 30, 2024 Billing Provider: MONTSERRAT OTERO MD Common Visit Codes: [id number] DISCH DAY >30min MONTSERRAT OTERO MD Jan 30, 2024 10:26
--- NOTE | 2024-01-30 14:11 | DVHPNRES ---
Progress Note Date Seen: Jan 30, 2024 Resident Creating Document: DEMETRIO PULIDO RESIDENT Medical Necessity Reason Pt with a Central, PICC or Fol: No Subjective Review of Systems Patient seen and examined at the bedside. Patient reported improvement in her symptoms since admission. Initiated GDMT and Lasix Patient reports: No new complaints Objective vital signs Vital Sign Date Time Temp Pulse Resp B/P (MAP) Pulse Ox O2 Delivery O2 Flow Rate FiO2 01/30/24 13:06 36.6 76 16 95 01/30/24 11:36 Nasal Cannula 2.0 01/30/24 11:36 28 01/30/24 10:00 91/50 Total Intake and Output 01/29/24 01/29/24 01/30/24 15:00 23:00 07:00 Intake Total 1300 ml 1200 ml 800 ml Output Total 600 ml Balance 1300 ml 600 ml 800 ml medications Current Medications Medications Dose Ordered Sig/Desirae Route Start Time Stop Time Status Last Admin Dose Admin Sodium Chloride 10 ml Q8HR IV 01/26/24 14:00 01/30/24 05:10 Acetaminophen/ Hydrocodone Bitart 1 tab Q4HP PRN PO 01/26/24 07:30 01/27/24 12:11 Ondansetron HCl 4 mg Q4HP PRN IV 01/26/24 07:30 Docusate Sodium 100 mg BIDPRN PRN PO 01/26/24 07:30 01/26/24 23:13 Acetaminophen 650 mg Q6HP PRN PO 01/26/24 07:30 Nitroglycerin 0.4 mg Q5MINP PRN SL 01/26/24 07:30 Morphine Sulfate 2 mg Q30M PRN IV 01/26/24 07:30 Azithromycin 250 ml @ 125 mls/hr DAILY IV 01/27/24 10:00 01/30/24 10:26 Methylprednisolone Sodium Succinate 40 mg BID IV 01/26/24 10:00 01/30/24 10:26 Albuterol 2.5 mg Q4HPRN PRN NEB 01/26/24 07:30 01/29/24 14:37 Ipratropium Bruno 0.5 mg Q4HPRN PRN NEB 01/26/24 07:30 01/29/24 14:37 Aspirin 81 mg DAILY PO 01/27/24 10:00 01/30/24 10:26 Furosemide 40 mg BID IV 01/27/24 10:00 01/29/24 22:10 Cyclobenzaprine HCl 10 mg TID PO 01/27/24 14:00 01/29/24 15:03 Sacubitril/ Valsartan 1 tab BID PO 01/27/24 22:00 01/29/24 08:51 Zolpidem Tartrate 5 mg HSPRN PRN PO 01/28/24 19:45 01/28/24 21:43 Examination General Appearance: Alert, Oriented X3, Cooperative, moderate distress HEENT: Atraumatic, Mucous membranes dry Respiratory: Clear to auscultation, Normal air movement, mild crackles Cardiovascular: Regular rate, Normal S1, Normal S2, No murmurs Abdominal: Active bowel sounds, Soft, no distention, no tenderness Extremities: Trace to 1+ edema in RLE, Normal pulses, No tenderness Skin: No Significant rash Neuro: Normal speech, sensorimotor deficits none Psych/Mental Status: Mental status NL, Mood NL Nurse was there as sharperone during examination laboratory and microbiology Laboratory Tests 01/30/24 06:05 Test 01/30/24 06:05 Range/Units Serum Glucose 138 H 74-106 mg/dL Microbiology Date/Time Source Procedure Growth Status 01/26/24 05:54 Blood Blood Culture - Preliminary NO GROWTH AFTER 72 HOURS OF INCUBATION. Resulted Labs and/or images reviewed: Labs reviewed by me, Image(s) reviewed by me Problem List/Assessment/Plan Problem List/Assessment/Plan Acute on chronic decompensated HFrEF with NYHA class IV with EF:10-15%. 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 Pneumonia likely bacterial Gram-/+ Hypokalemia, Tobacco dependence, Plan/Recommendation We will continue with the following plan/recommendations (Dr. Weller): Echocardiogram showed severely dilated LV, reduce systolic function with EF 10- 15% Chest pain protocol Continue with aspirin for now Risk factor modification Discussed with Dr. Wooten, initiated Lasix 40 mg IV b.i.d. and GDMT with Entresto, hold beta-blockers for now due to given fluid overload and positive methamphetamines, we can start while closer to discharge. Given that the patient amphetamine abuse, patient not a candidate for invasive inpatient workup at this time, only conservative management indicated at this time along with aggressive risk factor modifications and counseled regarding cessation of drug abuse for 17 minutes. Case discussed with Dr Wooten, patient and RN. We are signing off, thank you for allowing us in participating patient care. Reconsult if needed, thank you. Plan discussed with: Patient Visit Coding Cardiology RES Date of Service: Jan 30, 2024 Billing Provider: MARY BETH WOOTEN MD Cardiology Common Codes: [id number] INP/OBS CARE(Mod) DEMETRIO PULIDO RESIDENT Jan 30, 2024 14:11
[2024-01-30] MEDS ORDERED: SODIUM CHLORIDE 0.9% 500 ML IV ONE (14:30)
--- NOTE | 2024-01-30 21:45 | DVHPN2 ---
Progress Note - Dictate Date Seen: Jan 30, 2024 Medical Necessity Reason Pt with a Central, PICC or Fol: No Subjective Patient seen and examined at bedside. Remains on supplemental oxygen Overnight events reviewed. vital signs Vital Sign Date Time Temp Pulse Resp B/P (MAP) Pulse Ox O2 Delivery O2 Flow Rate FiO2 01/30/24 13:06 36.6 76 16 95 01/30/24 13:00 97/63 (74) 01/30/24 11:36 Nasal Cannula 2.0 01/30/24 11:36 28 Total Intake and Output 01/29/24 01/29/24 01/30/24 15:00 23:00 07:00 Intake Total 1300 ml 1200 ml 800 ml Output Total 600 ml Balance 1300 ml 600 ml 800 ml objective Gen.: Patient lying in bed in no apparent distress. On supplemental oxygen. Head: Normocephalic, atraumatic. Eyes: EOMI/PERRLA. Ears: Normal hearing. Normal anatomy. Neck/trachea: Trachea midline, supple. Nose: Normal external anatomy. Mouth: Moist mucous membranes. Chest: Decreased air entry bilaterally. No wheezing or rhonchi. Cardiovascular: Positive S1, positive S2. Regular rate and rhythm. Abdomen: Positive bowel sounds in all 4 quadrants. Soft, non-tender, non- distended. : Deferred. Rectal: Deferred. Skin: Warm, dry. Intact. Extremities: 2+ radial pulses bilaterally. No lower extremity edema. Neuro: Awake, alert, oriented x3. No gross motor or sensory deficits. Cranial nerves II through XII intact. Gait not assessed. laboratory and microbiology Laboratory Tests 01/30/24 06:05 Test 01/30/24 06:05 Range/Units Serum Glucose 138 H 74-106 mg/dL Assessment/Plan Impression: Acute hypoxic respiratory failure Dyspnea on exertion Cough, nonproductive RLL pneumonia, likely gram negative Atelectasis Pulmonary edema Metabolic acidosis Elevated troponin Hypokalemia Nicotine dependence Events: Remains on supplemental oxygen, 2 LPM NC Taper O2 as tolerated Assess and arrange for home O2. Continue bronchodilators Complete steroid and antibiotic course Incentive spirometry Low blood pressure - monitor Lasix on hold due to blood pressure Patient is stable for discharge from the pulmonary standpoint. Follow up in 1-2 weeks in [facility]. Labs and imaging reviewed. Rest of plan as noted below. Plan: Supplemental oxygen Titrate to keep O2 sats above 92%. ABG reviewed, compensated. Metabolic acidosis w/ respiratory compensation. CXR demonstrated pulmonary vascular congestion Lasix 20 mg IVP given x1 on 01/25 Elevated troponin - Cardiology recommendations appreciated Bronchodilators Started Mucomyst. Continue steroids Continue antibiotics Incentive spirometry Monitor renal function. Monitor electrolytes. Supplement as necessary. Monitor ins and outs. Maintain euvolemia Smoking cessation discussed for greater than 10 minutes. DVT prophylaxis. Prognosis: Poor given patient's multiple co-morbidities. Rest of plan per hospitalist and other consultants. Thank you Dr. Callahan for allowing me to participate in this patient's care. Further recommendations will depend on the patient's clinical course. Please do not hesitate to contact me if you have any questions or concerns. This medical document was created using an electronic medical record system with [id number] dictation system. Although these documentations are being carefully reviewed, there may still be some phonetic and typographical changes. The errors are purely typographical, due to imperfection on the software program, and do not reflect any compromise in the patient's medical care. Plan discussed with: Patient, Other (RUBI Hinesuz) QI ARAUZ MD Jan 30, 2024 21:44
== END 2024-01-30 15:30 | disposition home or self-care (01) | DRG 871 ==
LOC: EDBD 03:05 → ER 03:05 → TELE 07:29 → TELE-EAST 22:11
PROVIDERS: ADMIT Nurse Practitioner Family; ATTEND Family Medicine
DX: A41.9 Sepsis, unspecified organism (principal); I21.A1 Myocardial infarction type 2; I50.23 Acute on chronic systolic (congestive) heart failure; J96.01 Acute respiratory failure with hypoxia; J18.9 Pneumonia, unspecified organism; J44.1 Chronic obstructive pulmonary disease with (acute) exacerbation; E87.20 Acidosis, unspecified; J44.0 Chronic obstructive pulmonary disease with (acute) lower respiratory infection; I13.0 Hypertensive heart and chronic kidney disease with heart failure and stage 1 through stage 4 chronic kidney disease, or unspecified chronic kidney disease; Z20.822 Contact with and (suspected) exposure to COVID-19; E87.6 Hypokalemia; I95.9 Hypotension, unspecified; F15.10 Other stimulant abuse, uncomplicated; F17.210 Nicotine dependence, cigarettes, uncomplicated; N18.9 Chronic kidney disease, unspecified; Z88.0 Allergy status to penicillin
CPT/HCPCS: 36415; 36600; 71045; 80053; 80061; 80307; 81001; 82805; 83036; 83605; 83735; 83880; 84132; 84443; 84484; 85025; 85610; 85730; 87040; 87426; 87804; 93005; 93306; 94640; 96365; 96375; 99291; G0378; Q9956